=== PATIENT | male | born 1960 | race African-American/Black ===

== ENCOUNTER 2017-12-29 14:19 | Inpatient (IN) | payer OTHER ==
--- NOTE | 2017-12-29 16:54 | HP ---
COWS - Scale Resting Pulse: 1= [place] 81-100 Sweatin=Flushed/Facial Moisture Restless Observation: 1= Difficult to Sit Still Pupil Size: 0= Normal to Room Light Bone or Joint Aches: 2= Severe Diffuse Aches Runny Nose/ Eye Tearin= Nasal Congestion GI Upset > 30mins: 2= Nausea/Diarrhea Tremor Observation: 1= Tremor [place], Not Seen Yawning Observation: 1= 1-2x During Session Anxiety or Irritability: 1=Feels Anxious/Irritable Goose Flesh Skin: 0=Smooth Skin COWS Score: 12 CIWA Score - CIWA Score Nausea/Vomitin-Mild Nausea/No Vomiting Muscle Tremors: 1-None Visible, but [place] Anxiety: 3 Agitation: 2 Paroxysmal Sweats: 1-Minimal Palms Moist Orientation: 0-Oriented Tacttile Disturbances: 3-Moderate Itch/Numb/Burn Auditory Disturbances: 0-None Visual Disturbances: 0-None Headache: 2-Mild CIWA-Ar Total Score: 13 Admission ROS BHS - HPI Chief Complaint: Heroin/ETOH withdrawal symptoms. Allergies/Adverse Reactions: Allergies Allergy/AdvReac Type Severity Reaction Status Date / Time No Known Allergies Allergy Verified 12/29/17 16:31 History of Present Illness: Patient presents with Heroin and ETOH withdrawal symptoms. Started drinking at age 13. Drinks up to 2 pints of liquor and 18 beers daily. Had one episode of seizure years ago but denies any recent seizures. Patient started using herion at age 18. Has history injecting heroin but now he sniffs up to 2 bags daily. Last drink today at 1pm. Last use of heroin 12/27/17. Also reports he smokes crack /cocaine up to 10 bags daily and last dose today. Has PMH HIV+, Hep C, depression and HTN but is noncompliant with medication. Treated for Hepatitis C in 2015. Smokes up to 20 cigarettes daily. Denies SI, HI and suicide attempts. Exam Limitations: No Limitations - Ebola screening Have you traveled outside of the country in the last 21 days: No Have you had contact with anyone from an Ebola affected area: No Have you been sick,other than usual withdrawal symptoms: No Do you have a fever: No - Review of Systems Constitutional: Night Sweats, Changes in sleep, Unexplained wgt Loss EENT: reports: Tearing, Nose Congestion Respiratory: reports: Shortness of Breath Cardiac: reports: No Symptoms Reported GI: reports: Diarrhea, Nausea, Poor Fluid Intake, Abdominal cramping : reports: No Symptoms Reported Musculoskeletal: reports: Joint Pain, Muscle Pain Integumentary: reports: Sweating Neuro: reports: Headache, Numbness, Seizure, Tingling, Tremors Endocrine: reports: Unexplained Weight Loss Hematology: reports: No Symptoms Reported Psychiatric: reports: Orientated x3, Anxious, Depressed Patient History - Patient Medical History Hx Anemia: No Hx Asthma: Yes (on no meds) Hx Chronic Obstructive Pulmonary Disease (COPD): No Hx Cancer: Yes (Thymus gland cancer. . ) Hx Cardiac Disorders: No Hx Congestive Heart Failure: No Hx Hypertension: No Hx Hypercholesterolemia: No Hx Pacemaker: No HX Cerebrovascular Accident: No Hx Seizures: Yes (One seizure years ago. Date unknown) Hx Dementia: No Hx Diabetes: No Hx Gastrointestinal Disorders: No Hx Liver Disease: Yes Hx Genitourinary Disorders: No Hx Sexually Transmitted Disorders: No Hx Renal Disease (ESRD): No Hx Thyroid Disease: No Hx Human Immunodeficiency Virus (HIV): Yes Hx Hepatitis C: Yes (Treated for Hep C 2014) Hx Depression: Yes Hx Suicide Attempt: No Hx Bipolar Disorder: No Hx Schizophrenia: No - Patient Surgical History Past Surgical History: No Hx Neurologic Surgery: No Hx Cataract Extraction: No Hx Cardiac Surgery: No Hx Lung Surgery: No Hx Breast Surgery: No Hx Breast Biopsy: No Hx Abdominal Surgery: No Hx Appendectomy: No Hx Cholecystectomy: No Hx Genitourinary Surgery: No Hx Section: No Hx Orthopedic Surgery: No Other Surgical History: THYMUS CA SURGERY Anesthesia Reaction: No - PPD History Previous Implant?: Yes Documented Results: Positive w/o proof PPD to be Administered?: No - Smoking Cessation Smoking history: Current every day smoker Have you smoked in the past 12 months: Yes Aproximately how many cigarettes per day: 20 Hx Chewing Tobacco Use: No Initiated information on smoking cessation: Yes 'Breaking Loose' booklet given: 12/29/17 - Substance & Tx. History Hx Alcohol Use: Yes Hx Substance Use: Yes Substance Use Type: Alcohol, Cocaine, Heroin Hx Substance Use Treatment: Yes (Many years ago. Date unknown) - Substances Abused Alcohol Route: Oral Frequency: Daily Amount used: LIQUOR-2, BEER- 2 SIX PACKS Age of first use: 13 Date of Last Use: 12/29/17 Heroin Route: Inhalation Frequency: Daily Amount used: 2 BAGS Age of first use: 57 Date of Last Use: 12/27/17 Family Disease History - Family Disease History Family Disease History: Heart Disease: Mother (alive), CA: Grandparent (lung cancer) Admission Physical Exam [facility] - Physical General Appearance: Yes: Appropriately Dressed, Sweating, Anxious HEENTM: Yes: EOMI, Hearing grossly Normal, Normocephalic, Normal Voice, SASKIA, Pharynx Normal Respiratory: Yes: Within Normal Limits, Chest Non-Tender, Lungs Clear, Normal Breath Sounds, No Respiratory Distress, No Accessory Muscle Use Neck: Yes: No masses,lesions,Nodules, Supple, Trachea in good position Breast: Yes: Breast Exam Deferred Cardiology: Yes: Regular Rhythm, Regular Rate, S1, S2 Abdominal: Yes: Normal Bowel Sounds, Non Tender, Soft Genitourinary: Yes: Within Normal Limits Back: Yes: Normal Inspection, Muscle Spasm Musculoskeletal: Yes: Gait Steady, Back pain, Muscle Pain Extremities: Yes: Normal Range of Motion, Non-Tender, Tremors Neurological: Yes: paste up artist II-XII NML intact, Fully Oriented, Alert, Motor Strength 5/5, Normal Response, Depressed Affect Integumentary: Yes: Normal Color, Warm, Moist Lymphatic: Yes: Within Normal Limits - Diagnostic (1) Opioid dependence with withdrawal Current Visit: Yes Status: Acute (2) Alcohol dependence with uncomplicated withdrawal Current Visit: Yes Status: Acute (3) HIV positive Current Visit: Yes Status: Chronic (4) Depressed affect Current Visit: Yes Status: Acute (5) Nicotine dependence Current Visit: Yes Status: Chronic Qualifiers: Nicotine product type: unspecified Substance use status: uncomplicated Qualified Code(s): F17.200 - Nicotine dependence, unspecified, uncomplicated (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
[2017-12-29] MEDS ORDERED: ACETAMINOPHEN 325 MG TABLET (FP) PO PRN (17:16)
[2017-12-29] MEDS ORDERED: LOPERAMIDE HCL 2 MG CAPSULE PO PRN (17:16)
[2017-12-29] MEDS ORDERED: MAGNESIUM CITRATE 300 ML BOTTLE PO PRN (17:16)
[2017-12-29] MEDS ORDERED: MAGNESIUM HYDROX 2400MG/30ML ORAL SUSPENSION 30 ML CUP PO PRN (17:16)
[2017-12-29] MEDS ORDERED: hydrOXYzine PAMOATE 50 MG CAPSULE (FP) PO PRN (17:16)
[2017-12-29] MEDS ORDERED: guaiFENesin/D-METHORPHAN HB 10 ML UNIT-DOSE CUPS PO PRN (17:16)
[2017-12-29] MEDS ORDERED: MAG HYDROX/AL HYDROX/SIMETH 30 ML UNIT-DOSE CUP PO PRN (17:16)
[2017-12-29] MEDS ORDERED: IBUPROFEN 400 MG TABLET (FP) PO PRN (17:16)
[2017-12-29] MEDS ORDERED: NICOTINE POLACRILEX 2 MG GUM BC PRN (17:16)
[2017-12-29] MEDS ORDERED: MENTHOL/PHENOL 1 EACH UD MM PRN (17:16)
[2017-12-29] MEDS ORDERED: P-EPHED 60MG/TRIPROLIDI 2.5MG TABLET PO PRN (17:16)
[2017-12-29] MEDS ORDERED: chlordiazePOXIDE HCL 25 MG CAPSULE PO PRN (17:18)
[2017-12-29] MEDS ORDERED: chlordiazePOXIDE HCL 25 MG CAPSULE PO ONE (17:18)
[2017-12-29] MEDS ORDERED: METHADONE HCL 10 MG TABLET (FOR DETOX USE ONLY) PO ONE ×2 (17:18→23:00)
[2017-12-29 19:09] VITALS: BMI 31.6
[2017-12-29] MEDS ORDERED: METHADONE HCL 10 MG TABLET (FOR DETOX USE ONLY) ONE (20:06)
[2017-12-29] MEDS ORDERED: chlordiazePOXIDE HCL 25 MG CAPSULE ONE (20:06)
[2017-12-29] MEDS ORDERED: MELATONIN 5 MG TABLETS PO PRN (22:00)
[2017-12-29] MEDS: chlordiazePOXIDE HCL 25 MG CAPSULE PO SCH (22:07)
[2017-12-29] MEDS: THIAMINE HCL 100 MG TABLET (FP) PO SCH (22:08)
[2017-12-30] MEDS: chlordiazePOXIDE HCL 25 MG CAPSULE PO SCH ×4 (05:34→22:02)
[2017-12-30] MEDS ORDERED: METHADONE HCL 10 MG TABLET (FOR DETOX USE ONLY) PO SCH (10:00)
[2017-12-30] MEDS: PRENATAL VITAMINS W/ FOLIC ACID TABLET (FP) PO SCH (10:10)
[2017-12-30] MEDS: NICOTINE 21 MG/24 HOURS TOPICAL PATCH TD SCH (10:12)
[2017-12-30 10:39] LABS: HEMATOCRIT 43.7 % (35.4-49); HEMOGLOBIN 14.8 GM/dL (11.7-16.9); MCH 32.1 pg (25.7-33.7); MCHC 33.9 g/dl (32.0-35.9); MEAN CELL VOLUME 94.6 fl (80-96); MEAN PLT VOLUME 12.4 fl (7.5-11.1); PLATELET COUNT 122 K/MM3 (134-434); RBC 4.61 M/mm3 (4.00-5.60); RDW 12.7 % (11.9-15.9)
[2017-12-30 10:49] LABS: ALBUMIN 3.6 g/dl (3.4-5.0); ANION GAP 6 (8-16); BLOOD UREA NITROGEN 17 mg/dL (7-18); CHLORIDE 107 mmol/L (98-107); CO2 28 mmol/L (21-32); GLUCOSE,RANDOM 115 mg/dL (74-106); POTASSIUM 3.9 mmol/L (3.5-5.1); SGOT/AST 33 U/L (15-37); SGPT/ALT 22 U/L (12-78); SODIUM 141 mmol/L (136-145)
[2017-12-30 10:52] LABS: ALK PHOS 73 U/L (45-117); BILIRUBIN,TOTAL 0.4 mg/dL (0.2-1.0); CALCIUM 8.6 mg/dL (8.5-10.1); CREATININE 1.1 mg/dL (0.7-1.3); TOT PROT 6.8 g/dl (6.4-8.2)
--- NOTE | 2017-12-30 13:05 | CONSULT ---
[facility] Psychiatric Consult - Data Date of interview: 12/30/17 Admission source: [facility] Identifying data: First admission to [facility] for this 57 y/o AA male seeking detox treatment on for heroin,alcohol and cocaine (crack) dependence.Patient is single,a father of three,domiciled,unemployed and supported on SSI benefits. Substance Abuse History: Confirmed by patient in this interview.Details in current [facility] report : Smoking history: Current every day smoker. Have you smoked in the past 12 months: Yes. Aproximately how many cigarettes per day: 20. Hx Chewing Tobacco Use: No. Initiated information on smoking cessation: Yes. 'Breaking Loose' booklet given: 12/29/17. - Substance & Tx. History. Hx Alcohol Use: Yes. Hx Substance Use: Yes. Substance Use Type: Alcohol, Cocaine , Heroin. Hx Substance Use Treatment: Yes (Many years ago. Date unknown). - Substances Abused. Alcohol. Route: Oral. Frequency: Daily. Amount used: LIQUOR-2, BEER- 2 SIX PACKS. Age of first use: 13. Date of Last Use: . Heroin. Route: Inhalation. Frequency: Daily. Amount used: 2 BAGS. Age of first use: 57. Date of Last Use: 12/27/17 Medical History: HIV infection since 1987 (no compliant with ART medications), hypertension,bronchial asthma,hepatitis C,antecedent of withdrawal-related seizures and past surgery for cancer of thymus gland ([id number]). Psychiatric History: Patient denies. Physical/Sexual Abuse/Trauma History: Patient denies. Additional Comment: Urine Drug Screen Results: CHAKA-Cocaine, OPI-Opiates.Noted. Mental Status Exam - Mental Status Exam Alert and Oriented to: Time, Place, Person Cognitive Function: Good Patient Appearance: Well Groomed Mood: Hopeful, Euthymic Affect: Appropriate, Normal Range Patient Behavior: Appropriate, Cooperative Speech Pattern: Clear Voice Loudness: Normal Thought Process: Intact, Goal Oriented Thought Disorder: Not Present Hallucinations: Denies Suicidal Ideation: Denies Homicidal Ideation: Denies Insight/Judgement: Poor Sleep: Poorly, Difficulty falling asleep Appetite: Good Muscle strength/Tone: Normal Gait/Station: Normal Psychiatric Findings - Problem List ([place] 1, 2,3) (1) Alcohol dependence with uncomplicated withdrawal Current Visit: Yes Status: Acute (2) Opioid dependence with withdrawal Current Visit: Yes Status: Acute (3) Nicotine dependence Current Visit: Yes Status: Acute Qualifiers: Nicotine product type: unspecified Substance use status: uncomplicated Qualified Code(s): F17.200 - Nicotine dependence, unspecified, uncomplicated (4) Insomnia Current Visit: Yes Status: Acute - Initial Treatment Plan Initial Treatment Plan: Psychoeducation.Sleep hygiene.Detoxification in progress.Ambien 5 mg po hs prn.Patient is made aware of risk of parasomnias.Mr Taylor agrees with this careplan.Observation.
--- NOTE | 2017-12-30 13:19 | PN ---
[facility] CIWA - CIWA Score Nausea/Vomitin-No Nausea/No Vomiting Muscle Tremors: None Anxiety: 4-Mod. Anxious/Guarded Agitation: 2 Paroxysmal Sweats: 3 Orientation: 0-Oriented Tacttile Disturbances: 3-Moderate Itch/Numb/Burn Auditory Disturbances: 1-Very Mild Visual Disturbances: 3-Moderate Sensitivity Headache: 0-None Present CIWA-Ar Total Score: 16 BHS COWS - Scale Resting Pulse: 0= [place] 80 or Below Sweatin= Chills/Flushing Restless Observation: 0= Sits Still Pupil Size: 0= Normal to Room Light Bone or Joint Aches: 2= Severe Diffuse Aches Runny Nose/ Eye Tearin= Nasal Congestion GI Upset > 30mins: 2= Nausea/Diarrhea Tremor Observation of Outstretched Hands: 0= None Yawning Observation: 1= 1-2x During Session Anxiety or Irritability: 2=Irritable/Anxious Goose Flesh Skin: 3=Piloerection COWS Score: 12 BHS Progress Note (SOAP) Subjective: Body Aches, Fatigue, Sweating, Interrupted Sleep, Diarrhea. Objective: PATIENT A & O X 3. NO ACUTE DISTRESS. 12/30/17 13:17 Vital Signs Temperature 96.2 F L 12/30/17 09:12 Pulse Rate 78 12/30/17 12:00 Respiratory Rate 18 12/30/17 12:00 Blood Pressure 121/83 12/30/17 09:12 O2 Sat by Pulse Oximetry (%) Laboratory Tests 12/30/17 12/30/17 12/30/17 07:40 07:40 07:40 WBC 5.0 RBC 4.61 Hgb 14.8 Hct 43.7 MCV 94.6 MCH 32.1 MCHC 33.9 RDW 12.7 Plt Count 122 L MPV 12.4 H Sodium 141 Potassium 3.9 Chloride 107 Carbon Dioxide 28 Anion Gap 6 L BUN 17 Creatinine 1.1 Creat Clearance w eGFR > 60 Random Glucose 115 H Calcium 8.6 Total Bilirubin 0.4 AST 33 ALT 22 Alkaline Phosphatase 73 Total Protein 6.8 Albumin 3.6 RPR Titer Nonreactive LABS NOTED. UA RESULTS PENDING. Assessment: 12/30/17 13:18 WITHDRAWAL SYMPTOMS. Plan: CONTINUE DETOX. INCREASE DAILY PO FLUID INTAKE. ENCOURAGE AMBULATION.
--- NOTE | 2017-12-30 14:39 | EKG ---
Test Reason : Blood Pressure : / mmHG Vent. Rate : 087 BPM Atrial Rate : 087 BPM P-R Int : 162 ms QRS Dur : 130 ms QT Int : 386 ms P-R-T Axes : 068 063 046 degrees QTc Int : 464 ms NORMAL SINUS RHYTHM POSSIBLE LEFT ATRIAL ENLARGEMENT RIGHT BUNDLE BRANCH BLOCK ABNORMAL ECG NO PREVIOUS ECGS AVAILABLE Confirmed by MD Arley, Damion ([id number]) on 12/30/2017 2:39:28 PM Referred By: Confirmed By:Damion Tubbs MD
[2017-12-30] MEDS: TAMSULOSIN HCL 0.4 MG CAP.ER.24H (FP) PO SCH (20:51)
[2017-12-30] MEDS: ZOLPIDEM TARTRATE 5 MG TABLET PO PRN (22:02)
[2017-12-30] MEDS: THIAMINE HCL 100 MG TABLET (FP) PO SCH (22:02)
[2017-12-31] MEDS: chlordiazePOXIDE HCL 25 MG CAPSULE PO SCH ×3 (05:35→17:52)
[2017-12-31] MEDS: TAMSULOSIN HCL 0.4 MG CAP.ER.24H (FP) PO SCH ×2 (09:25→21:00)
[2017-12-31] MEDS: METHADONE HCL 5 MG TABLET (FOR DETOX USE ONLY) PO SCH (10:09)
[2017-12-31] MEDS: PRENATAL VITAMINS W/ FOLIC ACID TABLET (FP) PO SCH (10:09)
[2017-12-31] MEDS: NICOTINE 21 MG/24 HOURS TOPICAL PATCH TD SCH (10:11)
--- NOTE | 2017-12-31 11:14 | PN ---
S CIWA - CIWA Score Nausea/Vomitin-No Nausea/No Vomiting Muscle Tremors: 4-Moderate,w/Arms Extend Anxiety: 4-Mod. Anxious/Guarded Agitation: 4-Moderately Restless Orientation: 0-Oriented Tacttile Disturbances: 0-None Auditory Disturbances: 0-None Visual Disturbances: 0-None Headache: 0-None Present S COWS - Scale Resting Pulse: 0= [place] 80 or Below Sweatin= Chills/Flushing Restless Observation: 3= Extraneous Movement Pupil Size: 2= Moderately Dilated Bone or Joint Aches: 1= Mild Discomfort Runny Nose/ Eye Tearin= None GI Upset > 30mins: 0= None Tremor Observation of Outstretched Hands: 2= Slight Tremor Visible Yawning Observation: 1= 1-2x During Session Anxiety or Irritability: 2=Irritable/Anxious Goose Flesh Skin: 0=Smooth Skin COWS Score: 12 S Progress Note (SOAP) Subjective: ANXIETY,SWEATS,INTERMITTENT SLEEP. Objective: 12/31/17 11:13 Vital Signs Temperature 96.5 F L 12/31/17 09:16 Pulse Rate 76 12/31/17 09:16 Respiratory Rate 18 12/31/17 09:16 Blood Pressure 112/78 12/31/17 09:16 O2 Sat by Pulse Oximetry (%) Laboratory Tests 12/30/17 12/30/17 12/30/17 07:40 07:40 07:40 WBC 5.0 RBC 4.61 Hgb 14.8 Hct 43.7 MCV 94.6 MCH 32.1 MCHC 33.9 RDW 12.7 Plt Count 122 L MPV 12.4 H Sodium 141 Potassium 3.9 Chloride 107 Carbon Dioxide 28 Anion Gap 6 L BUN 17 Creatinine 1.1 Creat Clearance w eGFR > 60 Random Glucose 115 H Calcium 8.6 Total Bilirubin 0.4 AST 33 ALT 22 Alkaline Phosphatase 73 Total Protein 6.8 Albumin 3.6 RPR Titer Nonreactive Assessment: 12/31/17 11:14 WITHDRAWAL SX Plan: CONTINUE DETOX
[2017-12-31] MEDS: chlordiazePOXIDE 5 MG CAPSULE PO SCH (22:04)
[2017-12-31] MEDS: ZOLPIDEM TARTRATE 5 MG TABLET PO PRN (22:05)
[2017-12-31] MEDS: THIAMINE HCL 100 MG TABLET (FP) PO SCH (22:05)
[2018-01-01] MEDS: chlordiazePOXIDE 5 MG CAPSULE PO SCH ×3 (05:03→17:25)
[2018-01-01] MEDS: METHADONE HCL 5 MG TABLET (FOR DETOX USE ONLY) PO SCH (10:11)
[2018-01-01] MEDS: NICOTINE 21 MG/24 HOURS TOPICAL PATCH TD SCH (10:11)
[2018-01-01] MEDS: TAMSULOSIN HCL 0.4 MG CAP.ER.24H (FP) PO SCH ×2 (10:11→21:00)
[2018-01-01] MEDS: PRENATAL VITAMINS W/ FOLIC ACID TABLET (FP) PO SCH (10:11)
--- NOTE | 2018-01-01 11:09 | PN ---
BHS Progress Note (SOAP) Subjective: Diarrhea Sweats Sleep disturbance Shakes Objective: 01/01/18 11:08 A & O x 3 Sleeping but arousable to verbal stimuli Vital Signs Temperature 96.0 F L 01/01/18 09:01 Pulse Rate 76 01/01/18 09:01 Respiratory Rate 18 01/01/18 09:01 Blood Pressure 100/64 01/01/18 09:01 O2 Sat by Pulse Oximetry (%) Assessment: 01/01/18 11:08 Withdrawal sx Plan: Continue detox
[2018-01-01] MEDS: chlordiazePOXIDE HCL 10 MG CAPSULE PO SCH (22:06)
[2018-01-01] MEDS: ZOLPIDEM TARTRATE 5 MG TABLET PO PRN (22:07)
[2018-01-01] MEDS: THIAMINE HCL 100 MG TABLET (FP) PO SCH (22:07)
[2018-01-02] MEDS: chlordiazePOXIDE HCL 10 MG CAPSULE PO SCH ×2 (05:10→10:07)
[2018-01-02] MEDS: PRENATAL VITAMINS W/ FOLIC ACID TABLET (FP) PO SCH (09:49)
[2018-01-02] MEDS: NICOTINE 21 MG/24 HOURS TOPICAL PATCH TD SCH (09:50)
[2018-01-02] MEDS: TAMSULOSIN HCL 0.4 MG CAP.ER.24H (FP) PO SCH (09:50)
[2018-01-02] MEDS ORDERED: METHADONE HCL 10 MG TABLET (FOR DETOX USE ONLY) PO SCH (10:00)
--- NOTE | 2018-01-02 12:49 | PN ---
S Progress Note (SOAP) Subjective: Anxious, Fatigue. Objective: PATIENT A & O X 3, OBSERVED AMBULATING ON UNIT. NO ACUTE DISTRESS. 01/02/18 12:47 Vital Signs Temperature 98.8 F 01/02/18 09:56 Pulse Rate 82 01/02/18 09:56 Respiratory Rate 18 01/02/18 09:56 Blood Pressure 96/58 01/02/18 09:56 O2 Sat by Pulse Oximetry (%) Laboratory Tests 12/30/17 12/30/17 12/30/17 07:40 07:40 07:40 WBC 5.0 RBC 4.61 Hgb 14.8 Hct 43.7 MCV 94.6 MCH 32.1 MCHC 33.9 RDW 12.7 Plt Count 122 L MPV 12.4 H Sodium 141 Potassium 3.9 Chloride 107 Carbon Dioxide 28 Anion Gap 6 L BUN 17 Creatinine 1.1 Creat Clearance w eGFR > 60 Random Glucose 115 H Calcium 8.6 Total Bilirubin 0.4 AST 33 ALT 22 Alkaline Phosphatase 73 Total Protein 6.8 Albumin 3.6 RPR Titer Nonreactive LABS NOTED. Assessment: 01/02/18 12:48 WITHDRAWAL SYMPTOMS. Plan: CONTINUE DETOX. INCREASE DAILY PO FLUID INTAKE.
[2018-01-02 13:25] VITALS: BP 98/61; PULSE 77; TEMP 98.6
--- NOTE | 2018-01-02 18:36 | DS ---
[facility] Detox Discharge Summary Admission Date: 12/29/17 Discharge Date: 01/02/18 - History Present History: Alcohol Dependence, Opioid Dependence Additional Comments: [facility] [place] FOR AFTERCARE. PATIENT WAS DISCHARGED FROM DETOX UNIT IN STABLE MEDICAL CONDITION. Pertinent Past History: Asthma, History of Seizure, HIV, Hep C (Treated), Depression, Insomnia, History of Positive PPD, Nicotine Dependence, History of Cancer of Thymus Gland. - Physical Exam Results Vital Signs: Vital Signs Temperature 98.6 F 01/02/18 13:20 Pulse Rate 77 01/02/18 13:20 Respiratory Rate 20 01/02/18 13:20 Blood Pressure 98/61 01/02/18 13:20 O2 Sat by Pulse Oximetry (%) Pertinent Admission Physical Exam Findings: WITHDRAWAL SYMPTOMS. Laboratory Tests 12/30/17 12/30/17 12/30/17 07:40 07:40 07:40 WBC 5.0 RBC 4.61 Hgb 14.8 Hct 43.7 MCV 94.6 MCH 32.1 MCHC 33.9 RDW 12.7 Plt Count 122 L MPV 12.4 H Sodium 141 Potassium 3.9 Chloride 107 Carbon Dioxide 28 Anion Gap 6 L BUN 17 Creatinine 1.1 Creat Clearance w eGFR > 60 Random Glucose 115 H Calcium 8.6 Total Bilirubin 0.4 AST 33 ALT 22 Alkaline Phosphatase 73 Total Protein 6.8 Albumin 3.6 RPR Titer Nonreactive LABS NOTED. - Treatment Hospital Course: Detox Protocol Followed, Detoxed Safely, Responded well, Discharged Condition Good, Rehab Referral Accepted Patient has Accept[facility] ([facility] [place] . - Medication Discharge Medications: Ambulatory Orders Tamsulosin HCl [Flomax -] 0.4 mg PO BID 12/30/17 Albuterol Sulfate Inhaler - [Ventolin Hfa Inhaler -] 1 - 2 inh PO PRN 01/02/18 - Diagnosis (1) Alcohol dependence with uncomplicated withdrawal Status: Acute (2) Depressed affect Status: Acute (3) Nicotine dependence Status: Acute Qualifiers: Nicotine product type: cigarettes Substance use status: in withdrawal Qualified Code(s): F17.213 - Nicotine dependence, cigarettes, with withdrawal (4) Opioid dependence with withdrawal Status: Acute (5) Positive PPD Status: Chronic (6) HIV positive Status: Chronic (7) Insomnia Status: Acute Qualifiers: Insomnia type: unspecified Qualified Code(s): G47.00 - Insomnia, unspecified - AMA Did Patient Leave Against Medical Advice: No
[2018-01-03] MEDS ORDERED: METHADONE HCL 5 MG TABLET (FOR DETOX USE ONLY) PO SCH (06:00)
== END 2018-01-02 14:48 | disposition other institution (70) | DRG 773 ==
LOC: YASAS 14:19 → Y3N 17:09
PROVIDERS: ADMIT Internal Medicine; ATTEND Internal Medicine
PROC: HZ2ZZZZ Detoxification Services for Substance Abuse Treatment (ICD-10-PCS; principal; 2017-12-29)
DX: F11.23 Opioid dependence with withdrawal (principal); F10.230 Alcohol dependence with withdrawal, uncomplicated; F17.213 Nicotine dependence, cigarettes, with withdrawal; F32.9 Major depressive disorder, single episode, unspecified; I10 Essential (primary) hypertension; J45.909 Unspecified asthma, uncomplicated; Z21 Asymptomatic human immunodeficiency virus [HIV] infection status; G47.00 Insomnia, unspecified; R76.11 Nonspecific reaction to tuberculin skin test without active tuberculosis; B18.2 Chronic viral hepatitis C; Z91.14 Patient's other noncompliance with medication regimen; Z85.238 Personal history of other malignant neoplasm of thymus; Z86.69 Personal history of other diseases of the nervous system and sense organs
CPT/HCPCS: 36415; 71046-TC-FY; 80053; 85027; 86593; 93005; 93010

== ENCOUNTER 2018-01-02 14:46 | Inpatient (IN) | payer OTHER ==
[2018-01-02] MEDS ORDERED: ACETAMINOPHEN 325 MG TABLET (FP) PO PRN (15:02)
[2018-01-02] MEDS ORDERED: LOPERAMIDE HCL 2 MG CAPSULE PO PRN (15:02)
[2018-01-02] MEDS ORDERED: guaiFENesin/D-METHORPHAN HB 10 ML UNIT-DOSE CUPS PO PRN (15:02)
[2018-01-02] MEDS ORDERED: MAGNESIUM HYDROX 2400MG/30ML ORAL SUSPENSION 30 ML CUP PO PRN (15:02)
[2018-01-02] MEDS ORDERED: MAGNESIUM CITRATE 300 ML BOTTLE PO PRN (15:02)
[2018-01-02] MEDS ORDERED: NICOTINE POLACRILEX 2 MG GUM BUC PRN (15:02)
[2018-01-02] MEDS ORDERED: P-EPHED 60MG/TRIPROLIDI 2.5MG TABLET PO PRN (15:02)
[2018-01-02] MEDS ORDERED: MAG HYDROX/AL HYDROX/SIMETH 30 ML UNIT-DOSE CUP PO PRN (15:02)
--- NOTE | 2018-01-02 15:04 | HP ---
[facility] Rehab Assess/Revision - Admission History Admitted to Rehab from: [facility] Date of Admission to Rehab: 01/02/2018 - Vital signs Vital Signs: NOTED; STABLE. - Findings Detox History & Physical reviewed: Yes Concur with findings: Yes Comments/Additional Findings: PATIENT'S MEDICAL / MEDICATION HISTORY REVIEWED PRIOR TO DISCHARGE FROM DETOX UNIT. PATIENT WAS DISCHARGED FROM DETOX UNIT TO BE TAKEN TO REHAB UNIT IN STABLE MEDICAL CONDITION. Inpatient Rehab Admission - Initial Determination Are CD services needed?: Yes Free of communicable disease: Yes Not in need of hospitalization: Yes - Rehab Admission Criteria Previous failed treatment: Yes Comorbidities: Yes Patient is meeting Inpatient Rehab admission criteria:: Yes
[2018-01-02 15:51] VITALS: BMI 32.8
[2018-01-02] MEDS ORDERED: ALBUTEROL SO4 18 GM HFA INHALER IH PRN (18:39)
[2018-01-02] MEDS ORDERED: TAMSULOSIN HCL 0.4 MG CAP.ER.24H (FP) PO SCH (22:00)
[2018-01-02] MEDS: TAMSULOSIN HCL 0.4 MG CAP.ER.24H (FP) PO SCH (22:12)
[2018-01-02] MEDS: THIAMINE HCL 100 MG TABLET (FP) PO SCH (22:12)
[2018-01-02] MEDS: MELATONIN 5 MG TABLETS PO PRN (22:13)
[2018-01-03] MEDS: IBUPROFEN 400 MG TABLET (FP) PO PRN (06:20)
--- NOTE | 2018-01-03 06:26 | HP ---
Psychiatrist Admission - Data Date of interview: 01/03/18 Admission source: [facility] Identifying data: This is the first [facility] admission for this 57 years old single Black male, father of 3 children, unemployed on SSI, domiciled Medical History: Significant for HIV infection since 1987 (no compliant with ART medications), hypertension, bronchial asthma, hepatitis C past history of withdrawal-related seizures, treatment for syphilis and past surgery for cancer of thymus gland ([id number]). Smokes cigarettes 1ppd Psychiatric History: Denies history of previous psychiatric treatment Physical/Sexual Abuse/Trauma History: Denies history of emotional, physical or sexual abuse as well as DV relationship Additional Comment: Reports history of 5 previous arrests including 3 felony convictions. Denies being on parole/probation at present Vital Signs: Vital Signs - 24 hr 01/02/18 01/03/18 01/03/18 15:39 00:30 03:30 Temperature 97.6 F Pulse Rate 80 Respiratory 20 18 18 Rate Blood Pressure 112/74 Allergies/Adverse Reactions: Allergies Allergy/AdvReac Type Severity Reaction Status Date / Time No Known Allergies Allergy Verified 12/29/17 16:31 Date of last physical exam: 12/29/17 Concur with the findings of this exam: Yes - Substance Abuse/Tx History Hx Alcohol Use: Yes Hx Substance Use: Yes Substance Use Type: Alcohol (Started drinking alcohol at age 13, consumes 2 pints of liquor & 2x 6pk of beer daily. Last drank on 12/29/17), Heroin (Started using heroin at age 57, consumes 2 bags daily. Last used on 12/27/17) Hx Substance Use Treatment: Yes (One recent inpt detox admission @ [facility]) Mental Status Exam - Mental Status Exam Alert and Oriented to: Time, Place, Person Cognitive Function: Fair Patient Appearance: Disheveled Mood: Anxious, Irritable Affect: Appropriate Patient Behavior: Cooperative Speech Pattern: Clear Voice Loudness: Normal Thought Process: Intact, Goal Oriented Hallucinations: Denies Suicidal Ideation: Denies Homicidal Ideation: Denies Insight/Judgement: Fair Sleep: Poorly Appetite: Fair Muscle strength/Tone: Normal Gait/Station: Normal Psychiatric Findings - Problem List ([place] 1, 2,3) (1) Alcohol dependence Current Visit: Yes Status: Acute (2) Opioid dependence Current Visit: Yes Status: Acute (3) Nicotine dependence Current Visit: No Status: Chronic Qualifiers: Nicotine product type: cigarettes Substance use status: in withdrawal Qualified Code(s): F17.213 - Nicotine dependence, cigarettes, with withdrawal (4) Substance induced mood disorder Current Visit: Yes Status: Acute (5) Substance-induced sleep disorder Current Visit: Yes Status: Acute (6) HIV positive Current Visit: No Status: Chronic (7) Positive PPD Current Visit: No Status: Chronic (8) Bronchial asthma Current Visit: Yes Status: Chronic - Initial Treatment Plan Initial Treatment Plan: 1) Start Belsomra 10 mg po HS prn for insomnia. 2) Monitor progress
[2018-01-03] MEDS: TAMSULOSIN HCL 0.4 MG CAP.ER.24H (FP) PO SCH ×2 (08:50→20:35)
[2018-01-03] MEDS: PRENATAL VITAMINS W/ FOLIC ACID TABLET (FP) PO SCH (10:56)
[2018-01-03] MEDS: NICOTINE 21 MG/24 HOURS TOPICAL PATCH TD SCH (10:57)
--- NOTE | 2018-01-03 13:59 | PN ---
BHS Progress Note Note: Patient c/o nausea, sweating and tiredness x 1 day. Vital Signs Period Temp Pulse Resp BP Sys/[place] Pulse Ox Last 24 Hr 97.3 F-97.6 F 71-80 18-20 96-112/63-74 Obj: General: alert and oriented x 3. In no acute distress. Skin: moist, warm and intact GI: soft, BS+, NT Ext: no edema A/P: Withdrawal symptoms Will order Zofran 4mg x one dose continue current medical treatment and continue to monitor clinically
[2018-01-03] MEDS ORDERED: ONDANSETRON *ODT* 4 MG TABLET SL ONE (14:45)
[2018-01-03] MEDS ORDERED: ONDANSETRON 4 MG TABLET PO ONE (14:45)
[2018-01-03] MEDS: THIAMINE HCL 100 MG TABLET (FP) PO SCH (22:07)
[2018-01-03] MEDS: MELATONIN 5 MG TABLETS PO PRN (22:07)
[2018-01-04] MEDS: TAMSULOSIN HCL 0.4 MG CAP.ER.24H (FP) PO SCH ×2 (07:42→20:32)
[2018-01-04] MEDS: NICOTINE 21 MG/24 HOURS TOPICAL PATCH TD SCH (10:10)
[2018-01-04] MEDS: PRENATAL VITAMINS W/ FOLIC ACID TABLET (FP) PO SCH (10:10)
[2018-01-04] MEDS: SUVOREXANT 10 MG TABLET PO PRN (21:53)
[2018-01-04] MEDS: THIAMINE HCL 100 MG TABLET (FP) PO SCH (21:54)
[2018-01-05] MEDS: TAMSULOSIN HCL 0.4 MG CAP.ER.24H (FP) PO SCH ×2 (07:41→20:50)
[2018-01-05] MEDS: PRENATAL VITAMINS W/ FOLIC ACID TABLET (FP) PO SCH (10:23)
[2018-01-05] MEDS: NICOTINE 21 MG/24 HOURS TOPICAL PATCH TD SCH (10:24)
[2018-01-05] MEDS: MENTHOL/PHENOL 1 EACH UD MM PRN (12:39)
--- NOTE | 2018-01-05 13:26 | PN ---
S Progress Note Note: Patient c/o shoulder and LBP. Pain level 4/10. Dull ache. Patient is alert and oriented x 3. In no acute distress. Full ROM of all extremities. A/P: [place]ouler/ LBP: will treat with flexeril 10mg TID prn and continue to monitor.
[2018-01-05] MEDS: THIAMINE HCL 100 MG TABLET (FP) PO SCH (21:57)
[2018-01-05] MEDS: SUVOREXANT 10 MG TABLET PO PRN (21:57)
[2018-01-06] MEDS: TAMSULOSIN HCL 0.4 MG CAP.ER.24H (FP) PO SCH ×2 (08:30→20:15)
[2018-01-06] MEDS: PRENATAL VITAMINS W/ FOLIC ACID TABLET (FP) PO SCH (10:50)
[2018-01-06] MEDS: CYCLOBENZAPRINE HCL 10 MG TABLET (FP) PO PRN ×2 (10:52→20:15)
[2018-01-06] MEDS: NICOTINE 21 MG/24 HOURS TOPICAL PATCH TD SCH (10:53)
[2018-01-06] MEDS ORDERED: PT OWN MED DRAWER 7, Y5N ONE (14:39)
[2018-01-06] MEDS: THIAMINE HCL 100 MG TABLET (FP) PO SCH (21:14)
[2018-01-06] MEDS: MELATONIN 5 MG TABLETS PO PRN (21:14)
[2018-01-06] MEDS ORDERED: SUVOREXANT 10 MG TABLET PO PRN (22:00)
[2018-01-07] MEDS: MENTHOL/PHENOL 1 EACH UD MM PRN (06:24)
[2018-01-07] MEDS: TAMSULOSIN HCL 0.4 MG CAP.ER.24H (FP) PO SCH ×2 (09:30→21:02)
[2018-01-07] MEDS: NICOTINE 21 MG/24 HOURS TOPICAL PATCH TD SCH (12:02)
[2018-01-07] MEDS: PRENATAL VITAMINS W/ FOLIC ACID TABLET (FP) PO SCH (12:02)
--- NOTE | 2018-01-07 12:08 | PN ---
BHS Progress Note Note: painful in swallowing and oral sore,history of oropharyngeal candidiasis oral thrush on examination oral sore no respiratory problem impression oropharyngeal candidiasis treatment mycelex terri x5 prn for 5 days xylocaine viscous swish and spit supprtive treatment
[2018-01-07] MEDS: LIDOCAINE VISCOUS 2% ORAL/TOP 20 ML UNIT-DOSE CUP MM PRN (12:12)
[2018-01-07] MEDS: CYCLOBENZAPRINE HCL 10 MG TABLET (FP) PO PRN (12:12)
[2018-01-07] MEDS: CLOTRIMAZOLE 10 MG TROCHE (FP) PO SCH ×3 (14:55→21:02)
[2018-01-07] MEDS: MELATONIN 5 MG TABLETS PO PRN (21:02)
[2018-01-07] MEDS: THIAMINE HCL 100 MG TABLET (FP) PO SCH (21:02)
[2018-01-08] MEDS: LIDOCAINE VISCOUS 2% ORAL/TOP 20 ML UNIT-DOSE CUP MM PRN (02:13)
[2018-01-08] MEDS: CLOTRIMAZOLE 10 MG TROCHE (FP) PO SCH ×5 (06:47→21:48)
[2018-01-08] MEDS: TAMSULOSIN HCL 0.4 MG CAP.ER.24H (FP) PO SCH ×2 (08:03→21:47)
[2018-01-08] MEDS: NICOTINE 21 MG/24 HOURS TOPICAL PATCH TD SCH (10:41)
[2018-01-08] MEDS: PRENATAL VITAMINS W/ FOLIC ACID TABLET (FP) PO SCH (10:41)
--- NOTE | 2018-01-08 17:09 | PN ---
S Progress Note Note: Notified by RN patient continues to have sore throat. Vital signs stable. Throat culture ordered. Continue to monitor clinically.
[2018-01-08] MEDS: THIAMINE HCL 100 MG TABLET (FP) PO SCH (21:47)
[2018-01-08] MEDS: MELATONIN 5 MG TABLETS PO PRN (21:48)
[2018-01-09] MEDS: CLOTRIMAZOLE 10 MG TROCHE (FP) PO SCH ×5 (06:21→21:38)
[2018-01-09] MEDS: PRENATAL VITAMINS W/ FOLIC ACID TABLET (FP) PO SCH (10:14)
[2018-01-09] MEDS: TAMSULOSIN HCL 0.4 MG CAP.ER.24H (FP) PO SCH ×2 (10:15→21:37)
[2018-01-09] MEDS: NICOTINE 21 MG/24 HOURS TOPICAL PATCH TD SCH (10:15)
[2018-01-09] MEDS: THIAMINE HCL 100 MG TABLET (FP) PO SCH (21:37)
[2018-01-09] MEDS: MELATONIN 5 MG TABLETS PO PRN (21:38)
[2018-01-09] MEDS ORDERED: SUVOREXANT 10 MG TABLET PO PRN (22:00)
[2018-01-10] MEDS: CLOTRIMAZOLE 10 MG TROCHE (FP) PO SCH ×5 (06:15→21:41)
[2018-01-10] MEDS: TAMSULOSIN HCL 0.4 MG CAP.ER.24H (FP) PO SCH ×2 (08:41→19:55)
[2018-01-10] MEDS: PRENATAL VITAMINS W/ FOLIC ACID TABLET (FP) PO SCH (10:40)
[2018-01-10] MEDS: NICOTINE 21 MG/24 HOURS TOPICAL PATCH TD SCH (10:41)
[2018-01-10] MEDS: MELATONIN 5 MG TABLETS PO PRN (21:41)
[2018-01-10] MEDS: THIAMINE HCL 100 MG TABLET (FP) PO SCH (21:41)
[2018-01-10] MEDS: CYCLOBENZAPRINE HCL 10 MG TABLET (FP) PO PRN (21:43)
[2018-01-11] MEDS: CLOTRIMAZOLE 10 MG TROCHE (FP) PO SCH ×5 (06:33→22:07)
[2018-01-11] MEDS: TAMSULOSIN HCL 0.4 MG CAP.ER.24H (FP) PO SCH ×2 (08:48→22:07)
[2018-01-11] MEDS: PRENATAL VITAMINS W/ FOLIC ACID TABLET (FP) PO SCH (09:48)
[2018-01-11] MEDS: NICOTINE 21 MG/24 HOURS TOPICAL PATCH TD SCH (09:48)
--- NOTE | 2018-01-11 11:14 | PN ---
S Progress Note Note: THROAT FOR C/S SHOWED BETA HEMOLYTIC STEP GROUP C,TO START ON PEN VEEK 500 MGS PO Q 6 HRS FOR 7 DAYS
[2018-01-11] MEDS ORDERED: PENICILLIN V POTASSIUM 500 MG TABLET PO ONE (11:20)
--- NOTE | 2018-01-11 13:21 | PN ---
BHS Progress Note Note: sore throat, + strep on penicillin 500mg q6h x 7 days . Peridex order to relive discomfort.
[2018-01-11] MEDS: CHLORHEXIDINE GLUCONATE 0.12% 15ML CUP MM SCH ×2 (14:04→22:09)
[2018-01-11] MEDS: PENICILLIN V POTASSIUM 500 MG TABLET PO SCH ×2 (17:26→23:08)
[2018-01-11] MEDS: THIAMINE HCL 100 MG TABLET (FP) PO SCH (22:07)
[2018-01-11] MEDS: CYCLOBENZAPRINE HCL 10 MG TABLET (FP) PO PRN (22:09)
[2018-01-12] MEDS: PENICILLIN V POTASSIUM 500 MG TABLET PO SCH ×3 (06:11→17:32)
[2018-01-12] MEDS: CLOTRIMAZOLE 10 MG TROCHE (FP) PO SCH ×5 (06:11→23:18)
[2018-01-12] MEDS: CYCLOBENZAPRINE HCL 10 MG TABLET (FP) PO PRN ×2 (06:12→23:18)
[2018-01-12] MEDS: TAMSULOSIN HCL 0.4 MG CAP.ER.24H (FP) PO SCH ×2 (08:56→23:16)
[2018-01-12] MEDS ORDERED: PT OWN MED DRAWER 7, Y5N ONE (09:22)
[2018-01-12] MEDS: PRENATAL VITAMINS W/ FOLIC ACID TABLET (FP) PO SCH (09:56)
[2018-01-12] MEDS: CHLORHEXIDINE GLUCONATE 0.12% 15ML CUP MM SCH ×2 (10:29→23:18)
[2018-01-12] MEDS: NICOTINE 21 MG/24 HOURS TOPICAL PATCH TD SCH (10:29)
[2018-01-12] MEDS: IBUPROFEN 400 MG TABLET (FP) PO PRN (17:32)
[2018-01-12] MEDS: MELATONIN 5 MG TABLETS PO PRN (23:17)
[2018-01-12] MEDS: THIAMINE HCL 100 MG TABLET (FP) PO SCH (23:17)
[2018-01-13] MEDS: PENICILLIN V POTASSIUM 500 MG TABLET PO SCH ×5 (01:24→23:06)
[2018-01-13] MEDS: IBUPROFEN 400 MG TABLET (FP) PO PRN (07:51)
[2018-01-13] MEDS: TAMSULOSIN HCL 0.4 MG CAP.ER.24H (FP) PO SCH ×2 (07:51→20:00)
[2018-01-13] MEDS ORDERED: PT OWN MED DRAWER 7, Y5N ONE (09:04)
[2018-01-13] MEDS: NICOTINE 21 MG/24 HOURS TOPICAL PATCH TD SCH (09:57)
[2018-01-13] MEDS: CHLORHEXIDINE GLUCONATE 0.12% 15ML CUP MM SCH ×2 (09:57→21:32)
[2018-01-13] MEDS: PRENATAL VITAMINS W/ FOLIC ACID TABLET (FP) PO SCH (09:57)
[2018-01-13] MEDS: THIAMINE HCL 100 MG TABLET (FP) PO SCH (21:32)
[2018-01-13] MEDS: MELATONIN 5 MG TABLETS PO PRN (21:33)
[2018-01-13] MEDS: CYCLOBENZAPRINE HCL 10 MG TABLET (FP) PO PRN (21:34)
[2018-01-14] MEDS: PENICILLIN V POTASSIUM 500 MG TABLET PO SCH ×4 (06:13→23:18)
[2018-01-14] MEDS: TAMSULOSIN HCL 0.4 MG CAP.ER.24H (FP) PO SCH ×2 (07:37→22:40)
[2018-01-14] MEDS ORDERED: PT OWN MED DRAWER 7, Y5N ONE (08:59)
[2018-01-14] MEDS: CHLORHEXIDINE GLUCONATE 0.12% 15ML CUP MM SCH ×2 (10:03→22:40)
[2018-01-14] MEDS: PRENATAL VITAMINS W/ FOLIC ACID TABLET (FP) PO SCH (10:03)
[2018-01-14] MEDS: NICOTINE 21 MG/24 HOURS TOPICAL PATCH TD SCH (10:03)
[2018-01-14] MEDS: THIAMINE HCL 100 MG TABLET (FP) PO SCH (22:40)
[2018-01-14] MEDS: MELATONIN 5 MG TABLETS PO PRN (22:41)
[2018-01-14] MEDS: CYCLOBENZAPRINE HCL 10 MG TABLET (FP) PO PRN (22:41)
[2018-01-15] MEDS: PENICILLIN V POTASSIUM 500 MG TABLET PO SCH ×3 (06:28→18:31)
[2018-01-15] MEDS: TAMSULOSIN HCL 0.4 MG CAP.ER.24H (FP) PO SCH ×2 (07:39→23:17)
[2018-01-15] MEDS: PRENATAL VITAMINS W/ FOLIC ACID TABLET (FP) PO SCH (10:31)
[2018-01-15] MEDS: CHLORHEXIDINE GLUCONATE 0.12% 15ML CUP MM SCH ×2 (10:32→23:44)
[2018-01-15] MEDS: NICOTINE 21 MG/24 HOURS TOPICAL PATCH TD SCH (10:32)
--- NOTE | 2018-01-15 13:51 | PN ---
[facility] Progress Note Note: PATIENT PRESENTS WITH ONGOING SORE THROAT AND POOR APPETITE. PATIENT REPORTS HISTORY OF HIV BUT IS NON COMPLIANT WITH MEDICATION AND MD FOLLOW UP. RECENTLY DIAGNOSED WITH STREPT THROAT AND IS CURRENTLY ON PENICILLIN X ONE WEEK. Vital Signs Temperature 98.1 F 01/15/18 06:30 Pulse Rate 97 H 01/15/18 06:30 Respiratory Rate 20 01/15/18 06:30 Blood Pressure 102/70 01/15/18 06:30 O2 Sat by Pulse Oximetry (%) OBJ: ALERT AND ORIENTED X 3. IN NO ACUTE DISTRESS ENT: NO NASAL DISCHARGE, ORAL MUCOSA PINK AND MOIST. NO VISIBLE EXUDATE CAR: S1S2, RRR. RESP: CTA BL GI: SOFT, BS+, NT A/P: POOR APPETITE STREP THROAT HX OF HIV WILL CHECK CBC, BMP AND THROAT C/S ADD ENSURE 120ML BID PATIENT NOT EATING FULL MEALS INCREASE ORAL FLUIDS PT ENCOURAGED FOLLOW UP WITH PCP UPON DISCHARGE CONTINUE PCN CONTINUE TO MONITOR CLINICALLY
[2018-01-15] MEDS: IBUPROFEN 400 MG TABLET (FP) PO PRN (18:31)
[2018-01-15] MEDS: CYCLOBENZAPRINE HCL 10 MG TABLET (FP) PO PRN (23:15)
[2018-01-15] MEDS: MELATONIN 5 MG TABLETS PO PRN (23:15)
[2018-01-15] MEDS: THIAMINE HCL 100 MG TABLET (FP) PO SCH (23:44)
[2018-01-16] MEDS: PENICILLIN V POTASSIUM 500 MG TABLET PO SCH ×4 (06:11→23:45)
[2018-01-16] MEDS: TAMSULOSIN HCL 0.4 MG CAP.ER.24H (FP) PO SCH ×2 (07:43→22:01)
[2018-01-16] MEDS: PRENATAL VITAMINS W/ FOLIC ACID TABLET (FP) PO SCH (09:35)
[2018-01-16] MEDS: NICOTINE 21 MG/24 HOURS TOPICAL PATCH TD SCH (09:36)
[2018-01-16] MEDS: CHLORHEXIDINE GLUCONATE 0.12% 15ML CUP MM SCH ×2 (09:36→22:01)
[2018-01-16 10:07] LABS: HEMOGLOBIN 15.1 GM/dL (11.7-16.9); MCH 30.9 pg (25.7-33.7); MCHC 33.5 g/dl (32.0-35.9); MEAN CELL VOLUME 92.3 fl (80-96); MEAN PLT VOLUME 11.8 fl (7.5-11.1); PLATELET COUNT 121 K/MM3 (134-434); RBC 4.88 M/mm3 (4.00-5.60); RDW 12.9 % (11.9-15.9); WHITE BLOOD COUNT 3.3 K/mm3 (4.0-10.0)
[2018-01-16 10:18] LABS: CHLORIDE 104 mmol/L (98-107); POTASSIUM 3.9 mmol/L (3.5-5.1); SODIUM 141 mmol/L (136-145)
[2018-01-16 11:15] LABS: ANION GAP 8 (8-16); BLOOD UREA NITROGEN 18 mg/dL (7-18); CALCIUM 8.7 mg/dL (8.5-10.1); CO2 29 mmol/L (21-32); GLUCOSE,RANDOM 87 mg/dL (74-106)
[2018-01-16 15:07] LABS: ANISOCYTOSIS 1+; MACROCYTOSIS 1+; PLATELET ESTIMATE DECREASED
[2018-01-16] MEDS ORDERED: PT OWN MED DRAWER 7, Y5N ONE (20:57)
[2018-01-16] MEDS: THIAMINE HCL 100 MG TABLET (FP) PO SCH (22:01)
[2018-01-16] MEDS: MELATONIN 5 MG TABLETS PO PRN (22:02)
[2018-01-16] MEDS: CYCLOBENZAPRINE HCL 10 MG TABLET (FP) PO PRN (22:03)
[2018-01-17] MEDS: IBUPROFEN 400 MG TABLET (FP) PO PRN (09:01)
[2018-01-17] MEDS: PRENATAL VITAMINS W/ FOLIC ACID TABLET (FP) PO SCH (09:01)
[2018-01-17] MEDS: CYCLOBENZAPRINE HCL 10 MG TABLET (FP) PO PRN ×2 (09:02→22:03)
[2018-01-17] MEDS: CHLORHEXIDINE GLUCONATE 0.12% 15ML CUP MM SCH ×2 (09:03→22:04)
[2018-01-17] MEDS: NICOTINE 21 MG/24 HOURS TOPICAL PATCH TD SCH (09:03)
[2018-01-17] MEDS: PENICILLIN V POTASSIUM 500 MG TABLET PO SCH ×4 (10:30→23:45)
[2018-01-17] MEDS: TAMSULOSIN HCL 0.4 MG CAP.ER.24H (FP) PO SCH ×2 (10:30→22:03)
[2018-01-17] MEDS: MELATONIN 5 MG TABLETS PO PRN (22:03)
[2018-01-17] MEDS: THIAMINE HCL 100 MG TABLET (FP) PO SCH (22:04)
[2018-01-18] MEDS: IBUPROFEN 400 MG TABLET (FP) PO PRN (03:13)
[2018-01-18] MEDS: PENICILLIN V POTASSIUM 500 MG TABLET PO SCH ×2 (06:28→12:15)
[2018-01-18] MEDS: TAMSULOSIN HCL 0.4 MG CAP.ER.24H (FP) PO SCH ×2 (07:31→21:44)
[2018-01-18] MEDS: CHLORHEXIDINE GLUCONATE 0.12% 15ML CUP MM SCH ×2 (10:21→21:44)
[2018-01-18] MEDS: PRENATAL VITAMINS W/ FOLIC ACID TABLET (FP) PO SCH (10:21)
[2018-01-18] MEDS: NICOTINE 21 MG/24 HOURS TOPICAL PATCH TD SCH (10:21)
--- NOTE | 2018-01-18 19:14 | PN ---
Psychiatric Progress Note Vital Signs: Vital Signs Period Temp Pulse Resp BP Sys/Garland Pulse Ox Last 24 Hr 98.3 F 94 18-18 104/69 Date of Session: 01/18/18 Chief Complaint:: Discharge Note HPI: Patient will complete this program on 01/19/18. He has met his treatment goals and will continue to [facility] at [address] [place] [address]. He is stable for discharge on 01/19/18 Current Medications: Active Medications Generic Name Dose Route Start Last Admin Trade Name Freq PRN Reason Stop Dose Admin Acetaminophen 650 mg 01/02/18 15:02 Tylenol - PO Q4H PRN FEVER Al Hydroxide/Mg Hydroxide 30 ml 01/02/18 15:02 01/03/18 06:20 Mylanta Oral Suspension - PO 30 ml Q6H PRN Administration DYSPEPSIA Albuterol Sulfate 2 puff 01/02/18 18:39 Ventolin Hfa Inhaler - IH Q4H PRN SHORT OF BREATH/WHEEZING Chlorhexidine Gluconate 15 ml 01/11/18 14:00 01/18/18 10:21 Peridex - MM Not Given BID AARTI Cyclobenzaprine HCl 10 mg 01/05/18 13:24 01/17/18 22:03 Flexeril - PO 10 mg TID PRN Administration MUSCLE SPASMS Eucalyptus/Menthol/Phenol/Sorbitol 1 each 01/02/18 15:02 01/07/18 06:24 Cepastat Lozenge - MM 1 each Q4H PRN Administration SORE THROAT Guaifenesin 10 ml 01/02/18 15:02 Robitussin Dm - PO Q6H PRN COUGH Ibuprofen 400 mg 01/02/18 15:02 01/18/18 03:13 Motrin - PO 400 mg Q6H PRN Administration Pain Level 4-6 Lidocaine HCl 15 ml 01/07/18 11:59 01/08/18 02:13 Xylocaine 2% Viscous Oral - MM 15 ml Q6H PRN Administration ORAL PAIN/MOUTH SORES Loperamide HCl 4 mg 01/02/18 15:02 Imodium - PO Q6H PRN DIARRHEA Magnesium Citrate 300 ml 01/02/18 15:02 Citroma - PO Q48H PRN CONSTIPATION Magnesium Hydroxide 30 ml 01/02/18 15:02 Milk Of Magnesia - PO DAILY PRN CONSTIPATION Melatonin 5 mg 01/02/18 22:00 01/17/18 22:03 Melatonin PO 5 mg HS PRN Administration INSOMNIA Nicotine 21 mg 01/03/18 10:00 01/18/18 10:21 Nicoderm Patch - TD Not Given DAILY AARTI Nicotine Polacrilex 2 mg 01/02/18 15:02 Nicorette Gum - BUC Q2H PRN NICOTINE REPLACEMENT RX Multivit/Folic Acid/Iron 1 tab 01/03/18 10:00 01/18/18 10:21 Vitamins (Sjr) - PO Not Given DAILY AARTI Pseudoephedrine/Triprolidine 1 combo 01/02/18 15:02 Actifed - PO TID PRN NASAL CONGESTION Tamsulosin HCl 0.4 mg 01/02/18 20:30 01/18/18 07:31 Flomax - PO 0.4 mg BID@0830,2030 AARTI Administration Thiamine HCl 100 mg 01/02/18 22:00 01/17/18 22:04 Vitamin B1 - PO 100 mg HS AARTI Administration Current Side Effect: No Lab tests ordered: Yes Lab tests reviewed: Yes Provider note:: Patient will complete this program on 01/19/18. He has met his treatment goals and will continue to address his issues in outpatient treatment at [facility] at [address] [place] [address]. Told investigative writer that from his participation in this program, he has learned the value of "Stay away from "People, Places and Things". He is stable for discharge on 01/19/18 Total face to face time:: 35 Mental Status Exam - Mental Status Exam Alert and Oriented to: Time, Place, Person Cognitive Function: Fair Patient Appearance: Well Groomed Mood: Hopeful, Euthymic Affect: Appropriate Patient Behavior: Cooperative Speech Pattern: Clear Voice Loudness: Normal Thought Process: Intact Thought Disorder: Not Present Hallucinations: None Suicidal Ideation: Denies Homicidal Ideation: Denies Insight/Judgement: Fair Sleep: Fair Appetite: Good Muscle strength/Tone: Normal Gait/Station: Normal Psychiatric Treatment Plan - Problem List (1) Alcohol dependence Current Visit: Yes (2) Opioid dependence Current Visit: Yes (3) Nicotine dependence Current Visit: No Qualifiers: Nicotine product type: cigarettes Substance use status: in withdrawal Qualified Code(s): F17.213 - Nicotine dependence, cigarettes, with withdrawal (4) Substance induced mood disorder Current Visit: Yes (5) Substance-induced sleep disorder Current Visit: Yes (6) HIV positive Current Visit: No (7) Positive PPD Current Visit: No (8) Bronchial asthma Current Visit: Yes Initial treatment plan: Patient will be discharged tomorrow and referred to [facility] in the [place] for outpatient treatment
[2018-01-18] MEDS: MELATONIN 5 MG TABLETS PO PRN (21:44)
[2018-01-18] MEDS: THIAMINE HCL 100 MG TABLET (FP) PO SCH (21:44)
[2018-01-18] MEDS: CYCLOBENZAPRINE HCL 10 MG TABLET (FP) PO PRN (21:45)
[2018-01-19] MEDS: TAMSULOSIN HCL 0.4 MG CAP.ER.24H (FP) PO SCH ×2 (07:59→20:30)
[2018-01-19] MEDS: CHLORHEXIDINE GLUCONATE 0.12% 15ML CUP MM SCH ×2 (10:00→21:44)
[2018-01-19] MEDS: PRENATAL VITAMINS W/ FOLIC ACID TABLET (FP) PO SCH (10:00)
[2018-01-19] MEDS: NICOTINE 21 MG/24 HOURS TOPICAL PATCH TD SCH (10:00)
[2018-01-19] MEDS: CYCLOBENZAPRINE HCL 10 MG TABLET (FP) PO PRN ×2 (10:01→21:43)
[2018-01-19] MEDS: IBUPROFEN 400 MG TABLET (FP) PO PRN ×2 (10:01→21:43)
[2018-01-19] MEDS: MELATONIN 5 MG TABLETS PO PRN (21:43)
[2018-01-19] MEDS: THIAMINE HCL 100 MG TABLET (FP) PO SCH (21:43)
[2018-01-20] MEDS: TAMSULOSIN HCL 0.4 MG CAP.ER.24H (FP) PO SCH ×2 (09:30→21:27)
[2018-01-20] MEDS: NICOTINE 21 MG/24 HOURS TOPICAL PATCH TD SCH (10:16)
[2018-01-20] MEDS: CHLORHEXIDINE GLUCONATE 0.12% 15ML CUP MM SCH ×2 (10:16→21:29)
[2018-01-20] MEDS: PRENATAL VITAMINS W/ FOLIC ACID TABLET (FP) PO SCH (10:16)
[2018-01-20] MEDS: CYCLOBENZAPRINE HCL 10 MG TABLET (FP) PO PRN ×2 (10:17→21:28)
[2018-01-20] MEDS: THIAMINE HCL 100 MG TABLET (FP) PO SCH (21:26)
[2018-01-20] MEDS: MELATONIN 5 MG TABLETS PO PRN (21:26)
[2018-01-20] MEDS: IBUPROFEN 400 MG TABLET (FP) PO PRN (21:28)
[2018-01-21] MEDS: TAMSULOSIN HCL 0.4 MG CAP.ER.24H (FP) PO SCH ×2 (09:30→20:30)
[2018-01-21] MEDS: NICOTINE 21 MG/24 HOURS TOPICAL PATCH TD SCH (10:20)
[2018-01-21] MEDS: CHLORHEXIDINE GLUCONATE 0.12% 15ML CUP MM SCH ×2 (10:20→21:48)
[2018-01-21] MEDS: PRENATAL VITAMINS W/ FOLIC ACID TABLET (FP) PO SCH (10:20)
[2018-01-21] MEDS: MELATONIN 5 MG TABLETS PO PRN (21:47)
[2018-01-21] MEDS: THIAMINE HCL 100 MG TABLET (FP) PO SCH (21:47)
[2018-01-21] MEDS: CYCLOBENZAPRINE HCL 10 MG TABLET (FP) PO PRN (21:47)
[2018-01-22] MEDS: TAMSULOSIN HCL 0.4 MG CAP.ER.24H (FP) PO SCH ×2 (07:57→19:59)
[2018-01-22] MEDS: NICOTINE 21 MG/24 HOURS TOPICAL PATCH TD SCH (10:28)
[2018-01-22] MEDS: CHLORHEXIDINE GLUCONATE 0.12% 15ML CUP MM SCH ×2 (10:29→22:08)
[2018-01-22] MEDS: PRENATAL VITAMINS W/ FOLIC ACID TABLET (FP) PO SCH (10:29)
[2018-01-22] MEDS: THIAMINE HCL 100 MG TABLET (FP) PO SCH (22:05)
[2018-01-22] MEDS: CYCLOBENZAPRINE HCL 10 MG TABLET (FP) PO PRN (22:05)
[2018-01-22] MEDS: MELATONIN 5 MG TABLETS PO PRN (22:05)
[2018-01-23] MEDS: MENTHOL/PHENOL 1 EACH UD MM PRN (06:19)
[2018-01-23 07:08] VITALS: BP 105/72; PULSE 102; TEMP 98.3
[2018-01-23] MEDS: TAMSULOSIN HCL 0.4 MG CAP.ER.24H (FP) PO SCH (07:53)
--- NOTE | 2018-01-23 09:12 | PN ---
Psychiatric Progress Note Vital Signs: Vital Signs Period Temp Pulse Resp BP Sys/Garland Pulse Ox Last 24 Hr 98.3 F 102 18-18 105/72 Date of Session: 01/23/18 Chief Complaint:: "Discharge." HPI: Patient admitted to [facility] [place] inpatient rehabilitation program for heroin and cocaine dependence. ROS: Significant for HIV infection since 1987 (no compliant with ART medications ), hypertension, bronchial asthma, hepatitis C past history of withdrawal- related seizures, treatment for syphilis and past surgery for cancer of thymus gland ([id number]). Smokes cigarettes 1ppd Current Medications: Active Medications Generic Name Dose Route Start Last Admin Trade Name Freq PRN Reason Stop Dose Admin Acetaminophen 650 mg 01/02/18 15:02 Tylenol - PO Q4H PRN FEVER Al Hydroxide/Mg Hydroxide 30 ml 01/02/18 15:02 01/03/18 06:20 Mylanta Oral Suspension - PO 30 ml Q6H PRN Administration DYSPEPSIA Albuterol Sulfate 2 puff 01/02/18 18:39 Ventolin Hfa Inhaler - IH Q4H PRN SHORT OF BREATH/WHEEZING Chlorhexidine Gluconate 15 ml 01/11/18 14:00 01/22/18 22:08 Peridex - MM Not Given BID AARTI Cyclobenzaprine HCl 10 mg 01/05/18 13:24 01/22/18 22:05 Flexeril - PO 10 mg TID PRN Administration MUSCLE SPASMS Eucalyptus/Menthol/Phenol/Sorbitol 1 each 01/02/18 15:02 01/23/18 06:19 Cepastat Lozenge - MM 1 each Q4H PRN Administration SORE THROAT Guaifenesin 10 ml 01/02/18 15:02 Robitussin Dm - PO Q6H PRN COUGH Ibuprofen 400 mg 01/02/18 15:02 01/20/18 21:28 Motrin - PO 400 mg Q6H PRN Administration Pain Level 4-6 Lidocaine HCl 15 ml 01/07/18 11:59 01/08/18 02:13 Xylocaine 2% Viscous Oral - MM 15 ml Q6H PRN Administration ORAL PAIN/MOUTH SORES Loperamide HCl 4 mg 01/02/18 15:02 Imodium - PO Q6H PRN DIARRHEA Magnesium Citrate 300 ml 01/02/18 15:02 Citroma - PO Q48H PRN CONSTIPATION Magnesium Hydroxide 30 ml 01/02/18 15:02 Milk Of Magnesia - PO DAILY PRN CONSTIPATION Melatonin 5 mg 01/02/18 22:00 01/22/18 22:05 Melatonin PO 5 mg HS PRN Administration INSOMNIA Nicotine 21 mg 01/03/18 10:00 01/22/18 10:28 Nicoderm Patch - TD Not Given DAILY AARTI Nicotine Polacrilex 2 mg 01/02/18 15:02 Nicorette Gum - BUC Q2H PRN NICOTINE REPLACEMENT RX Multivit/Folic Acid/Iron 1 tab 01/03/18 10:00 01/22/18 10:29 Vitamins (Sjr) - PO Not Given DAILY AARTI Pseudoephedrine/Triprolidine 1 combo 01/02/18 15:02 01/22/18 06:52 Actifed - PO 1 combo TID PRN Administration NASAL CONGESTION Tamsulosin HCl 0.4 mg 01/02/18 20:30 01/23/18 07:53 Flomax - PO 0.4 mg BID@0830,2030 AARTI Administration Thiamine HCl 100 mg 01/02/18 22:00 01/22/18 22:05 Vitamin B1 - PO 100 mg HS AARTI Administration Medication(s) Change(s): No. Current Side Effect: No Lab tests ordered: No Lab tests reviewed: Yes Provider note:: Patient will complete the inpatient rehabilitation program on . He has met his treatment goals and will address his issues at the [facility] in the [place], [place]. Patient is able to understand the consequences of his addiction and the need to make positive changes to his lifestyle in order to maintain abstinence. Pt. is stable for discharge on 01/23/18. Total face to face time:: 35 Mental Status Exam - Mental Status Exam Alert and Oriented to: Time, Place, Person Cognitive Function: Good Patient Appearance: Well Groomed Mood: Hopeful Affect: Mood Congruent Patient Behavior: Appropriate, Cooperative Speech Pattern: Clear, Appropriate Voice Loudness: Normal Thought Process: Intact, Goal Oriented Thought Disorder: Not Present Hallucinations: Denies Suicidal Ideation: Denies Homicidal Ideation: Denies Insight/Judgement: Poor Sleep: Well Appetite: Good Muscle strength/Tone: Normal Gait/Station: Normal Psychiatric Treatment Plan - Problem List (1) Alcohol dependence Current Visit: Yes (2) Opioid dependence Current Visit: Yes (3) Substance induced mood disorder Current Visit: Yes (4) Substance-induced sleep disorder Current Visit: Yes (5) Nicotine dependence Current Visit: No Qualifiers: Nicotine product type: cigarettes Substance use status: in withdrawal Qualified Code(s): F17.213 - Nicotine dependence, cigarettes, with withdrawal
[2018-01-23] MEDS: NICOTINE 21 MG/24 HOURS TOPICAL PATCH TD SCH (09:16)
[2018-01-23] MEDS: CHLORHEXIDINE GLUCONATE 0.12% 15ML CUP MM SCH (09:16)
[2018-01-23] MEDS: PRENATAL VITAMINS W/ FOLIC ACID TABLET (FP) PO SCH (09:16)
[2018-01-23] MEDS ORDERED: PT OWN MED DRAWER 7, Y5N ONE (10:44)
== END 2018-01-23 09:40 | disposition home or self-care (01) | DRG 772 ==
LOC: YASAS 14:46 → Y3W 14:47
PROVIDERS: ADMIT Psychiatry & Neurology Psychiatry; ATTEND Psychiatry & Neurology Psychiatry
PROC: HZ42ZZZ Group Counseling for Substance Abuse Treatment, Cognitive-Behavioral (ICD-10-PCS; principal; 2018-01-02)
DX: F11.20 Opioid dependence, uncomplicated (principal); F10.20 Alcohol dependence, uncomplicated; F17.213 Nicotine dependence, cigarettes, with withdrawal; F19.24 Other psychoactive substance dependence with psychoactive substance-induced mood disorder; F19.282 Other psychoactive substance dependence with psychoactive substance-induced sleep disorder; B18.2 Chronic viral hepatitis C; B37.0 Candidal stomatitis; Z21 Asymptomatic human immunodeficiency virus [HIV] infection status; J02.0 Streptococcal pharyngitis; B95.3 Streptococcus pneumoniae as the cause of diseases classified elsewhere; M79.1 Myalgia; Z86.19 Personal history of other infectious and parasitic diseases; Z86.69 Personal history of other diseases of the nervous system and sense organs
CPT/HCPCS: 36415; 80048; 85025; 87070; 87077; Q0162

== ENCOUNTER 2021-09-27 09:31 | Inpatient (IN) | payer OTHER ==
[2021-09-27] MEDS ORDERED: MAGNESIUM HYDROX 2400MG/30ML ORAL SUSPENSION 30 ML CUP PO PRN (09:58)
[2021-09-27] MEDS ORDERED: MENTHOL/PHENOL 1 EACH UD MM PRN (09:58)
[2021-09-27] MEDS ORDERED: MAGNESIUM CITRATE 300 ML BOTTLE PO PRN (09:58)
[2021-09-27] MEDS ORDERED: BISMUTH SUBSALICYLATE 524 MG/30 ML PO PRN (09:58)
[2021-09-27] MEDS ORDERED: MAG HYDROX/AL HYDROX/SIMETH 30 ML UNIT-DOSE CUP PO PRN (09:58)
[2021-09-27] MEDS ORDERED: ACETAMINOPHEN 325 MG TABLET (FP) PO PRN (09:58)
[2021-09-27] MEDS ORDERED: NICOTINE 10 MG CARTRIDGE (INHALER) IH PRN (09:58)
[2021-09-27] MEDS ORDERED: cloNIDine HCL 0.1 MG TABLET PO PRN (09:58)
[2021-09-27] MEDS ORDERED: ONDANSETRON *ODT* 4 MG TABLET SL PRN (09:58)
[2021-09-27] MEDS ORDERED: ALBUTEROL SO4 HFA INHALER IH PRN (10:00)
[2021-09-27 10:42] VITALS: BMI 24.2
[2021-09-27] MEDS ORDERED: BUPRENORPHINE HCL 150 MCG, BUPRENORPHINE HCL 75 MCG BC ONE (10:45)
[2021-09-27] MEDS ORDERED: BUPRENORPHINE HCL 75 MCG FILM BC ONE (12:31)
[2021-09-27] MEDS ORDERED: BUPRENORPHINE HCL 150 MCG FILM BC ONE (12:32)
[2021-09-27] MEDS: TAMSULOSIN HCL 0.4 MG CAP PO SCH ×2 (12:33→21:37)
[2021-09-27] MEDS: hydrOXYzine PAMOATE 25 MG CAPSULE (FP) PO SCH ×4 (12:33→21:37)
[2021-09-27] MEDS: METHOCARBAMOL 500 MG TABLET PO PRN ×2 (12:33→18:28)
[2021-09-27] MEDS: NICOTINE 14 MG/24 HOURS TOPICAL PATCH TD SCH (12:34)
[2021-09-27] MEDS: PRENATAL VITAMINS W/ FOLIC ACID TABLET (FP) PO SCH (12:34)
[2021-09-27 14:47] LABS: CALCIUM 9.2 mg/dL (8.5-10.1)
[2021-09-27 14:48] LABS: ALBUMIN 3.3 g/dl (3.4-5.0); BLOOD UREA NITROGEN 24.1 mg/dL (7-18)
[2021-09-27 14:53] LABS: BILIRUBIN,TOTAL 0.6 mg/dL (0.2-1)
[2021-09-27 14:58] LABS: HEMATOCRIT 41.9 % (35.4-49); HEMOGLOBIN 13.6 GM/dL (11.7-16.9); MCH 28.8 pg (25.7-33.7); MCHC 32.5 g/dl (32.0-35.9); MEAN CELL VOLUME 88.8 fl (80-96); MEAN PLT VOLUME 10.8 fl (7.5-11.1); PLATELET COUNT 183 10^3/uL (134-434); RBC 4.72 M/mm3 (4.00-5.60); RDW 14.9 % (11.9-15.9); WHITE BLOOD COUNT 5.7 K/mm3 (4.0-10.0)
[2021-09-27] MEDS: IBUPROFEN 400 MG TABLET (FP) PO PRN (18:26)
[2021-09-27] MEDS: AMOX TR/POT CLAV 500MG/125MG TABLETS (FP) PO SCH (21:13)
[2021-09-27] MEDS: MELATONIN 5 MG TABLETS PO SCH (21:36)
[2021-09-27] MEDS: THIAMINE HCL 100 MG TABLET (FP) PO SCH (21:37)
[2021-09-28] MEDS ORDERED: BUPRENORPHINE HCL 75 MCG FILM BC ONE ×2 (05:19→17:18)
[2021-09-28] MEDS: BUPRENORPHINE HCL 150 MCG, BUPRENORPHINE HCL 75 MCG BC SCH ×2 (05:20→17:19)
[2021-09-28] MEDS ORDERED: BUPRENORPHINE HCL 150 MCG FILM BC ONE ×2 (05:20→17:19)
[2021-09-28] MEDS: hydrOXYzine PAMOATE 25 MG CAPSULE (FP) PO SCH ×5 (05:21→22:12)
[2021-09-28] MEDS: METHOCARBAMOL 500 MG TABLET PO PRN ×3 (05:22→17:27)
[2021-09-28] MEDS: AMOX TR/POT CLAV 500MG/125MG TABLETS (FP) PO SCH ×2 (08:23→17:17)
[2021-09-28] MEDS: TAMSULOSIN HCL 0.4 MG CAP PO SCH ×2 (10:39→22:12)
[2021-09-28] MEDS: PRENATAL VITAMINS W/ FOLIC ACID TABLET (FP) PO SCH (10:39)
[2021-09-28] MEDS: IBUPROFEN 400 MG TABLET (FP) PO PRN ×2 (10:40→22:15)
[2021-09-28] MEDS: NICOTINE 14 MG/24 HOURS TOPICAL PATCH TD SCH (10:40)
[2021-09-28] MEDS ORDERED: FLU VACC QS2021-22(6MOS UP)/PF 60 MCG/0.5 ML SYRINGE IM ONE (12:00)
[2021-09-28] MEDS: LIDOCAINE 5% TOPICAL PATCH TP SCH (15:28)
[2021-09-28] MEDS: THIAMINE HCL 100 MG TABLET (FP) PO SCH (22:12)
[2021-09-28] MEDS: MELATONIN 5 MG TABLETS PO SCH (22:12)
[2021-09-28] MEDS: LIDOCAINE PATCH REMOVAL MC SCH (22:13)
[2021-09-29] MEDS: hydrOXYzine PAMOATE 25 MG CAPSULE (FP) PO SCH ×5 (06:00→22:20)
[2021-09-29] MEDS: BUPRENORPHINE HCL 450 MCG FILM BC SCH ×2 (06:00→17:46)
[2021-09-29] MEDS: AMOX TR/POT CLAV 500MG/125MG TABLETS (FP) PO SCH ×2 (07:32→17:47)
[2021-09-29] MEDS ORDERED: POVIDONE-IODINE 10% SOLN 118 ML BOTTLE TP ONE (10:20)
[2021-09-29] MEDS: PRENATAL VITAMINS W/ FOLIC ACID TABLET (FP) PO SCH (11:04)
[2021-09-29] MEDS: LIDOCAINE 5% TOPICAL PATCH TP SCH (11:04)
[2021-09-29] MEDS: NICOTINE 14 MG/24 HOURS TOPICAL PATCH TD SCH (11:04)
[2021-09-29] MEDS: IBUPROFEN 400 MG TABLET (FP) PO PRN (11:06)
[2021-09-29] MEDS: TAMSULOSIN HCL 0.4 MG CAP PO SCH ×2 (12:11→22:19)
[2021-09-29] MEDS: ACETAMINOPHEN 325 MG TABLET (FP) PO PRN ×2 (17:47→22:52)
[2021-09-29] MEDS: LIDOCAINE PATCH REMOVAL MC SCH (22:19)
[2021-09-29] MEDS: MELATONIN 5 MG TABLETS PO SCH (22:20)
[2021-09-29] MEDS: THIAMINE HCL 100 MG TABLET (FP) PO SCH (22:20)
[2021-09-30] MEDS: BUPRENORPHINE/NALOXONE 4 MG/1 MG FILM PACKET SL SCH ×2 (06:01→17:43)
[2021-09-30] MEDS: hydrOXYzine PAMOATE 25 MG CAPSULE (FP) PO SCH ×5 (06:01→22:22)
[2021-09-30] MEDS: METHOCARBAMOL 500 MG TABLET PO PRN ×3 (06:03→17:44)
[2021-09-30] MEDS: AMOX TR/POT CLAV 500MG/125MG TABLETS (FP) PO SCH ×2 (07:05→17:42)
[2021-09-30] MEDS: TAMSULOSIN HCL 0.4 MG CAP PO SCH ×2 (10:35→22:25)
[2021-09-30] MEDS: LIDOCAINE 5% TOPICAL PATCH TP SCH (10:35)
[2021-09-30] MEDS: PRENATAL VITAMINS W/ FOLIC ACID TABLET (FP) PO SCH (10:35)
[2021-09-30] MEDS: NICOTINE 14 MG/24 HOURS TOPICAL PATCH TD SCH (10:36)
[2021-09-30] MEDS: MELATONIN 5 MG TABLETS PO SCH (22:22)
[2021-09-30] MEDS: THIAMINE HCL 100 MG TABLET (FP) PO SCH (22:22)
[2021-09-30] MEDS: LIDOCAINE PATCH REMOVAL MC SCH (22:22)
[2021-09-30] MEDS: ACETAMINOPHEN 325 MG TABLET (FP) PO PRN (22:24)
[2021-10-01] MEDS: hydrOXYzine PAMOATE 25 MG CAPSULE (FP) PO SCH (05:19)
[2021-10-01] MEDS: METHOCARBAMOL 500 MG TABLET PO PRN (05:20)
[2021-10-01] MEDS ORDERED: BUPRENORPHINE/NALOXONE 8 MG/2 MG FILM PACKET SL ONE (06:00)
[2021-10-01] MEDS: AMOX TR/POT CLAV 500MG/125MG TABLETS (FP) PO SCH (07:06)
[2021-10-01] MEDS ORDERED: POVIDONE-IODINE OINTMENT 10% - 28.4 GM TUBE TP ONE (08:58)
[2021-10-01 09:23] VITALS: BP 125/75; PULSE 99; TEMP 97.3
[2021-10-01] MEDS ORDERED: cloNIDine HCL 0.1 MG TABLET PO ONE (10:45)
== END 2021-10-01 09:47 | disposition other institution (70) | DRG 773 ==
LOC: YASAS 09:31 → Y6N 10:57
PROVIDERS: ADMIT Allergy & Immunology; ATTEND Allergy & Immunology
PROC: HZ2ZZZZ Detoxification Services for Substance Abuse Treatment (ICD-10-PCS; principal; 2021-09-27)
DX: F11.23 Opioid dependence with withdrawal (principal); F10.230 Alcohol dependence with withdrawal, uncomplicated; F14.20 Cocaine dependence, uncomplicated; F17.210 Nicotine dependence, cigarettes, uncomplicated; Z21 Asymptomatic human immunodeficiency virus [HIV] infection status; I10 Essential (primary) hypertension; J45.909 Unspecified asthma, uncomplicated; M25.511 Pain in right shoulder; G89.29 Other chronic pain; L02.512 Cutaneous abscess of left hand; Z87.2 Personal history of diseases of the skin and subcutaneous tissue; R79.89 Other specified abnormal findings of blood chemistry; Z59.01 Sheltered homelessness
CPT/HCPCS: 36415; 71046-TC-FY; 80053; 85027; 86780; 90686; 93005; 93010; C9803; G0008; J0735; U0003; U0005

== ENCOUNTER 2021-12-14 17:36 | Inpatient (IN) | payer OTHER ==
[2021-12-14 19:28] VITALS: BMI 24.2
[2021-12-14] MEDS ORDERED: NICOTINE POLACRILEX 2 MG GUM BUC PRN (21:32)
[2021-12-14] MEDS ORDERED: methaDONE HCL 10 MG TABLET (FOR DETOX USE ONLY) PO ONE (21:32)
[2021-12-14] MEDS ORDERED: MAG HYDROX/AL HYDROX/SIMETH 30 ML UNIT-DOSE CUP PO PRN (21:32)
[2021-12-14] MEDS ORDERED: DICYCLOMINE HCL 10 MG CAPSULE PO PRN (21:32)
[2021-12-14] MEDS ORDERED: LOPERAMIDE HCL 2 MG CAPSULE PO PRN (21:32)
[2021-12-14] MEDS ORDERED: ACETAMINOPHEN 325 MG TABLET (FP) PO PRN ×2 (21:32)
[2021-12-14] MEDS ORDERED: MAGNESIUM HYDROX 2400MG/30ML ORAL SUSPENSION 30 ML CUP PO PRN (21:32)
[2021-12-14] MEDS ORDERED: MAGNESIUM CITRATE 300 ML BOTTLE PO PRN (21:32)
[2021-12-14] MEDS ORDERED: cloNIDine HCL 0.1 MG TABLET PO PRN (21:32)
[2021-12-14] MEDS ORDERED: BISMUTH SUBSALICYLATE 524 MG/30 ML PO PRN (21:32)
[2021-12-14] MEDS ORDERED: ONDANSETRON *ODT* 4 MG TABLET SL PRN (21:32)
[2021-12-15] MEDS ORDERED: methaDONE HCL 10 MG TABLET (FOR DETOX USE ONLY) PO ONE (02:28)
[2021-12-15] MEDS: MELATONIN 5 MG TABLETS PO SCH ×2 (03:19→22:11)
[2021-12-15] MEDS: THIAMINE HCL 100 MG TABLET (FP) PO SCH ×2 (03:19→22:11)
[2021-12-15] MEDS: cloNIDine HCL 0.1 MG TABLET PO PRN ×2 (06:05→17:31)
[2021-12-15] MEDS ORDERED: BUPRENORPHINE HCL 150 MCG, BUPRENORPHINE HCL 75 MCG BC ONE (10:27)
[2021-12-15] MEDS ORDERED: BUPRENORPHINE HCL 150 MCG, BUPRENORPHINE HCL 75 MCG BC PRN (10:27)
[2021-12-15] MEDS ORDERED: cloNIDine HCL 0.1 MG TABLET PO ONE (10:27)
[2021-12-15] MEDS ORDERED: ALBUTEROL SO4 HFA INHALER IH PRN (10:41)
[2021-12-15 10:48] LABS: ALBUMIN 2.7 g/dl (3.4-5.0); BLOOD UREA NITROGEN 13.9 mg/dL (7-18); CALCIUM 8.7 mg/dL (8.5-10.1); HEMOGLOBIN 11.8 GM/dL (11.7-16.9); MCH 30.4 pg (25.7-33.7); MCHC 33.8 g/dl (32.0-35.9); MEAN CELL VOLUME 89.8 fl (80-96); MEAN PLT VOLUME 11.1 fl (7.5-11.1); PLATELET COUNT 141 10^3/uL (134-434); RDW 14.7 % (11.9-15.9); WHITE BLOOD COUNT 3.2 K/mm3 (4.0-10.0)
[2021-12-15] MEDS: PRENATAL VITAMINS W/ FOLIC ACID TABLET (FP) PO SCH (10:48)
[2021-12-15] MEDS ORDERED: BUPRENORPHINE HCL 150 MCG FILM BC ONE (10:50)
[2021-12-15] MEDS ORDERED: BUPRENORPHINE HCL 75 MCG FILM BC ONE (10:51)
[2021-12-15 10:56] LABS: BILIRUBIN,TOTAL 0.3 mg/dL (0.2-1); TOT PROT 7.7 g/dl (6.4-8.2)
[2021-12-15] MEDS: HYDROCHLOROTHIAZIDE 12.5 MG CAPSULE (FP) PO SCH (11:55)
[2021-12-15] MEDS: AMOX TR/POT CLAV 875MG/125MG TABLETS (FP) PO SCH ×2 (11:55→22:11)
[2021-12-15] MEDS: ACYCLOVIR 400 MG TABLET PO SCH (11:56)
[2021-12-15] MEDS: NICOTINE 14 MG/24 HOURS TOPICAL PATCH TD SCH (12:30)
[2021-12-15] MEDS ORDERED: cloNIDine HCL 0.1 MG TABLET PO PRN (14:27)
[2021-12-15] MEDS: TOBRAMYCIN 0.3% OPHTH SOLN 5 ML BOTTLE OU SCH ×3 (14:27→22:11)
[2021-12-15] MEDS: FINASTERIDE 5 MG TABLET (FP) PO SCH (17:30)
[2021-12-15] MEDS: TAMSULOSIN HCL 0.4 MG CAP PO SCH (22:11)
[2021-12-15] MEDS: diazePAM 5 MG TABLET PO PRN (22:14)
[2021-12-16] MEDS ORDERED: BUPRENORPHINE HCL 150 MCG, BUPRENORPHINE HCL 75 MCG BC PRN
[2021-12-16] MEDS ORDERED: BUPRENORPHINE HCL 150 MCG FILM BC ONE ×2 (04:49→17:29)
[2021-12-16] MEDS ORDERED: BUPRENORPHINE HCL 75 MCG FILM BC ONE ×2 (04:49→17:29)
[2021-12-16] MEDS: BUPRENORPHINE HCL 150 MCG, BUPRENORPHINE HCL 75 MCG BC SCH ×2 (06:35→17:29)
[2021-12-16] MEDS: cloNIDine HCL 0.1 MG TABLET PO PRN (06:37)
[2021-12-16] MEDS: IBUPROFEN 400 MG TABLET (FP) PO PRN (06:38)
[2021-12-16] MEDS ORDERED: methaDONE HCL 10 MG TABLET (FOR DETOX USE ONLY) PO ONE (10:00)
[2021-12-16] MEDS: AMOX TR/POT CLAV 875MG/125MG TABLETS (FP) PO SCH ×2 (10:25→22:17)
[2021-12-16] MEDS: HYDROCHLOROTHIAZIDE 12.5 MG CAPSULE (FP) PO SCH (10:25)
[2021-12-16] MEDS: ACYCLOVIR 400 MG TABLET PO SCH (10:25)
[2021-12-16] MEDS: FINASTERIDE 5 MG TABLET (FP) PO SCH (10:26)
[2021-12-16] MEDS: TOBRAMYCIN 0.3% OPHTH SOLN 5 ML BOTTLE OU SCH ×4 (10:26→22:17)
[2021-12-16] MEDS: METHOCARBAMOL 500 MG TABLET PO PRN (10:26)
[2021-12-16] MEDS: NICOTINE 14 MG/24 HOURS TOPICAL PATCH TD SCH (10:26)
[2021-12-16] MEDS: PRENATAL VITAMINS W/ FOLIC ACID TABLET (FP) PO SCH (10:26)
[2021-12-16] MEDS ORDERED: P-EPHED 60MG/TRIPROLIDI 2.5MG TABLET PO PRN (14:36)
[2021-12-16 15:09] LABS: SARS-CoV-2 NAA Not Detected (Not Detected)
[2021-12-16] MEDS: BENZOCAINE/MENTHOL (CHLORASEPTIC ) LOZENGE MM PRN (22:16)
[2021-12-16] MEDS: TAMSULOSIN HCL 0.4 MG CAP PO SCH (22:17)
[2021-12-16] MEDS: THIAMINE HCL 100 MG TABLET (FP) PO SCH (22:17)
[2021-12-16] MEDS: MELATONIN 5 MG TABLETS PO SCH (22:17)
[2021-12-16] MEDS: diazePAM 5 MG TABLET PO PRN (22:18)
[2021-12-17] MEDS: BUPRENORPHINE HCL 450 MCG FILM BC SCH ×2 (07:14→17:56)
[2021-12-17] MEDS: BENZOCAINE/MENTHOL (CHLORASEPTIC ) LOZENGE MM PRN (07:22)
[2021-12-17] MEDS ORDERED: methaDONE HCL 10 MG TABLET (FOR DETOX USE ONLY) PO ONE (10:00)
[2021-12-17] MEDS: PRENATAL VITAMINS W/ FOLIC ACID TABLET (FP) PO SCH (10:22)
[2021-12-17] MEDS: AMOX TR/POT CLAV 875MG/125MG TABLETS (FP) PO SCH ×2 (10:22→22:16)
[2021-12-17] MEDS: HYDROCHLOROTHIAZIDE 12.5 MG CAPSULE (FP) PO SCH (10:22)
[2021-12-17] MEDS: NICOTINE 14 MG/24 HOURS TOPICAL PATCH TD SCH (10:22)
[2021-12-17] MEDS: ACYCLOVIR 400 MG TABLET PO SCH (10:22)
[2021-12-17] MEDS: METHOCARBAMOL 500 MG TABLET PO PRN ×2 (10:22→22:19)
[2021-12-17] MEDS: TOBRAMYCIN 0.3% OPHTH SOLN 5 ML BOTTLE OU SCH ×4 (10:24→22:17)
[2021-12-17] MEDS: diazePAM 5 MG TABLET PO PRN (10:24)
[2021-12-17] MEDS: FINASTERIDE 5 MG TABLET (FP) PO SCH (10:24)
[2021-12-17] MEDS: THIAMINE HCL 100 MG TABLET (FP) PO SCH (22:16)
[2021-12-17] MEDS: MELATONIN 5 MG TABLETS PO SCH (22:16)
[2021-12-17] MEDS: TAMSULOSIN HCL 0.4 MG CAP PO SCH (22:18)
[2021-12-18] MEDS: BUPRENORPHINE/NALOXONE 4 MG/1 MG FILM PACKET SL SCH ×2 (06:58→17:28)
[2021-12-18] MEDS ORDERED: methaDONE HCL 10 MG TABLET (FOR DETOX USE ONLY) PO ONE (10:00)
[2021-12-18] MEDS: PRENATAL VITAMINS W/ FOLIC ACID TABLET (FP) PO SCH (10:50)
[2021-12-18] MEDS: TOBRAMYCIN 0.3% OPHTH SOLN 5 ML BOTTLE OU SCH ×4 (10:50→22:46)
[2021-12-18] MEDS: NICOTINE 14 MG/24 HOURS TOPICAL PATCH TD SCH (10:51)
[2021-12-18] MEDS: ACYCLOVIR 400 MG TABLET PO SCH (10:51)
[2021-12-18] MEDS: FINASTERIDE 5 MG TABLET (FP) PO SCH (10:51)
[2021-12-18] MEDS: HYDROCHLOROTHIAZIDE 12.5 MG CAPSULE (FP) PO SCH (10:52)
[2021-12-18] MEDS: AMOX TR/POT CLAV 875MG/125MG TABLETS (FP) PO SCH ×2 (10:52→22:46)
[2021-12-18] MEDS: TAMSULOSIN HCL 0.4 MG CAP PO SCH (22:45)
[2021-12-18] MEDS: THIAMINE HCL 100 MG TABLET (FP) PO SCH (22:46)
[2021-12-18] MEDS: MELATONIN 5 MG TABLETS PO SCH (22:46)
[2021-12-18] MEDS: METHOCARBAMOL 500 MG TABLET PO PRN (22:46)
[2021-12-18] MEDS: IBUPROFEN 400 MG TABLET (FP) PO PRN (22:47)
[2021-12-19] MEDS ORDERED: BUPRENORPHINE/NALOXONE 8 MG/2 MG FILM PACKET SL ONE (06:00)
[2021-12-19] MEDS: IBUPROFEN 400 MG TABLET (FP) PO PRN (06:02)
[2021-12-19] MEDS: BENZOCAINE/MENTHOL (CHLORASEPTIC ) LOZENGE MM PRN (09:28)
[2021-12-19] MEDS ORDERED: methaDONE HCL 10 MG TABLET (FOR DETOX USE ONLY) PO ONE (10:00)
[2021-12-19] MEDS: PRENATAL VITAMINS W/ FOLIC ACID TABLET (FP) PO SCH (10:10)
[2021-12-19] MEDS: TOBRAMYCIN 0.3% OPHTH SOLN 5 ML BOTTLE OU SCH ×4 (10:10→22:32)
[2021-12-19] MEDS: ACYCLOVIR 400 MG TABLET PO SCH (10:10)
[2021-12-19] MEDS: NICOTINE 14 MG/24 HOURS TOPICAL PATCH TD SCH (10:11)
[2021-12-19] MEDS: HYDROCHLOROTHIAZIDE 12.5 MG CAPSULE (FP) PO SCH (10:11)
[2021-12-19] MEDS: FINASTERIDE 5 MG TABLET (FP) PO SCH (10:11)
[2021-12-19] MEDS: AMOX TR/POT CLAV 875MG/125MG TABLETS (FP) PO SCH ×2 (10:11→22:33)
[2021-12-19] MEDS: METHOCARBAMOL 500 MG TABLET PO PRN ×2 (14:10→22:34)
[2021-12-19] MEDS: TAMSULOSIN HCL 0.4 MG CAP PO SCH (22:33)
[2021-12-19] MEDS: THIAMINE HCL 100 MG TABLET (FP) PO SCH (22:33)
[2021-12-19] MEDS: MELATONIN 5 MG TABLETS PO SCH (22:33)
[2021-12-20] MEDS ORDERED: BUPRENORPHINE/NALOXONE 8 MG/2 MG FILM PACKET SL ONE (08:00)
[2021-12-20] MEDS: ACYCLOVIR 400 MG TABLET PO SCH (10:29)
[2021-12-20] MEDS: PRENATAL VITAMINS W/ FOLIC ACID TABLET (FP) PO SCH (10:29)
[2021-12-20] MEDS: HYDROCHLOROTHIAZIDE 12.5 MG CAPSULE (FP) PO SCH (10:29)
[2021-12-20] MEDS: AMOX TR/POT CLAV 875MG/125MG TABLETS (FP) PO SCH ×2 (10:29→22:20)
[2021-12-20] MEDS: FINASTERIDE 5 MG TABLET (FP) PO SCH (10:30)
[2021-12-20] MEDS: TOBRAMYCIN 0.3% OPHTH SOLN 5 ML BOTTLE OU SCH ×4 (10:31→22:22)
[2021-12-20] MEDS: NICOTINE 14 MG/24 HOURS TOPICAL PATCH TD SCH (10:31)
[2021-12-20] MEDS: CLOTRIMAZOLE 10 MG TROCHE PO SCH ×3 (16:06→22:20)
[2021-12-20] MEDS: MELATONIN 5 MG TABLETS PO SCH (22:20)
[2021-12-20] MEDS: THIAMINE HCL 100 MG TABLET (FP) PO SCH (22:20)
[2021-12-20] MEDS: TAMSULOSIN HCL 0.4 MG CAP PO SCH (22:22)
[2021-12-21] MEDS ORDERED: BUPRENORPHINE/NALOXONE 8 MG/2 MG FILM PACKET SL ONE (06:00)
[2021-12-21] MEDS: CLOTRIMAZOLE 10 MG TROCHE PO SCH ×5 (06:08→23:02)
[2021-12-21] MEDS: PRENATAL VITAMINS W/ FOLIC ACID TABLET (FP) PO SCH (10:22)
[2021-12-21] MEDS: NICOTINE 14 MG/24 HOURS TOPICAL PATCH TD SCH (10:23)
[2021-12-21] MEDS: AMOX TR/POT CLAV 875MG/125MG TABLETS (FP) PO SCH ×2 (10:23→23:02)
[2021-12-21] MEDS: HYDROCHLOROTHIAZIDE 12.5 MG CAPSULE (FP) PO SCH (10:23)
[2021-12-21] MEDS: ACYCLOVIR 400 MG TABLET PO SCH (10:23)
[2021-12-21] MEDS: FINASTERIDE 5 MG TABLET (FP) PO SCH (10:25)
[2021-12-21] MEDS: TOBRAMYCIN 0.3% OPHTH SOLN 5 ML BOTTLE OU SCH ×4 (10:25→23:02)
[2021-12-21] MEDS: THIAMINE HCL 100 MG TABLET (FP) PO SCH (23:02)
[2021-12-21] MEDS: TAMSULOSIN HCL 0.4 MG CAP PO SCH (23:02)
[2021-12-21] MEDS: MELATONIN 5 MG TABLETS PO SCH (23:02)
[2021-12-22] MEDS: CLOTRIMAZOLE 10 MG TROCHE PO SCH ×3 (05:47→14:57)
[2021-12-22] MEDS ORDERED: BUPRENORPHINE/NALOXONE 8 MG/2 MG FILM PACKET SL ONE (06:00)
[2021-12-22] MEDS: TOBRAMYCIN 0.3% OPHTH SOLN 5 ML BOTTLE OU SCH (10:42)
[2021-12-22] MEDS: NICOTINE 14 MG/24 HOURS TOPICAL PATCH TD SCH (10:42)
[2021-12-22] MEDS: AMOX TR/POT CLAV 875MG/125MG TABLETS (FP) PO SCH (10:42)
[2021-12-22] MEDS: ACYCLOVIR 400 MG TABLET PO SCH (10:42)
[2021-12-22] MEDS: HYDROCHLOROTHIAZIDE 12.5 MG CAPSULE (FP) PO SCH (10:42)
[2021-12-22] MEDS: PRENATAL VITAMINS W/ FOLIC ACID TABLET (FP) PO SCH (10:42)
[2021-12-22] MEDS: FINASTERIDE 5 MG TABLET (FP) PO SCH (11:08)
[2021-12-22 13:02] VITALS: BP 131/76; PULSE 75; TEMP 98.2
[2021-12-22] MEDS ORDERED: NICOTINE 10 MG CARTRIDGE (INHALER) IH PRN (14:29)
== END 2021-12-22 14:59 | disposition other institution (70) | DRG 773 ==
LOC: YASAS 17:36 → Y3N 23:15
PROVIDERS: ADMIT Allergy & Immunology; ATTEND Allergy & Immunology
PROC: HZ2ZZZZ Detoxification Services for Substance Abuse Treatment (ICD-10-PCS; principal; 2021-12-14)
DX: F11.23 Opioid dependence with withdrawal (principal); F15.20 Other stimulant dependence, uncomplicated; F17.210 Nicotine dependence, cigarettes, uncomplicated; F32.A Depression, unspecified; I10 Essential (primary) hypertension; B20 Human immunodeficiency virus [HIV] disease; B37.0 Candidal stomatitis; J45.909 Unspecified asthma, uncomplicated; N40.0 Benign prostatic hyperplasia without lower urinary tract symptoms; R94.5 Abnormal results of liver function studies; R00.0 Tachycardia, unspecified; Z85.238 Personal history of other malignant neoplasm of thymus; Z86.19 Personal history of other infectious and parasitic diseases; Z86.11 Personal history of tuberculosis; Z86.69 Personal history of other diseases of the nervous system and sense organs; Z59.00 Homelessness unspecified
CPT/HCPCS: 36415; 80053; 85027; 86780; C9803-CS; J0735; U0003; U0005

== ENCOUNTER 2021-12-22 15:14 | Inpatient (IN) | payer OTHER ==
[2021-12-22] MEDS ORDERED: LOPERAMIDE HCL 2 MG CAPSULE PO PRN (16:13)
[2021-12-22] MEDS ORDERED: MAGNESIUM CITRATE 300 ML BOTTLE PO PRN (16:13)
[2021-12-22] MEDS ORDERED: MAG HYDROX/AL HYDROX/SIMETH 30 ML UNIT-DOSE CUP PO PRN (16:13)
[2021-12-22] MEDS ORDERED: ACETAMINOPHEN 325 MG TABLET (FP) PO PRN (16:13)
[2021-12-22] MEDS ORDERED: guaiFENesin 200 MG/10 ML 10 ML UNIT-DOSE CUPS PO PRN (16:13)
[2021-12-22] MEDS ORDERED: MAGNESIUM HYDROX 2400MG/30ML ORAL SUSPENSION 30 ML CUP PO PRN (16:13)
[2021-12-22] MEDS ORDERED: BENZOCAINE/MENTHOL (CHLORASEPTIC ) LOZENGE MM PRN (16:13)
[2021-12-22] MEDS ORDERED: P-EPHED 60MG/TRIPROLIDI 2.5MG TABLET PO PRN (16:13)
[2021-12-22] MEDS: CLOTRIMAZOLE 10 MG TROCHE PO SCH ×2 (18:06→21:42)
[2021-12-22] MEDS: NICOTINE 10 MG CARTRIDGE (INHALER) IH PRN (18:07)
[2021-12-22] MEDS: MELATONIN 5 MG TABLETS PO SCH (21:42)
[2021-12-22] MEDS: THIAMINE HCL 100 MG TABLET (FP) PO SCH (21:42)
[2021-12-23] MEDS: CLOTRIMAZOLE 10 MG TROCHE PO SCH ×5 (06:19→22:02)
[2021-12-23] MEDS: TAMSULOSIN HCL 0.4 MG CAP PO SCH ×2 (07:32→08:32)
[2021-12-23] MEDS: PRENATAL VITAMINS W/ FOLIC ACID TABLET (FP) PO SCH (09:51)
[2021-12-23] MEDS: NICOTINE 7 MG/24 HOURS TOPICAL PATCH TD SCH (09:51)
[2021-12-23] MEDS: NICOTINE 10 MG CARTRIDGE (INHALER) IH PRN ×2 (09:51→17:22)
[2021-12-23] MEDS: ACYCLOVIR 400 MG TABLET PO SCH (09:52)
[2021-12-23] MEDS: BUPRENORPHINE/NALOXONE 8 MG/2 MG FILM PACKET SL SCH (09:53)
[2021-12-23] MEDS: HYDROCHLOROTHIAZIDE 12.5 MG CAPSULE (FP) PO SCH (09:53)
[2021-12-23] MEDS: FINASTERIDE 5 MG TABLET (FP) PO SCH (11:38)
[2021-12-23] MEDS: MELATONIN 5 MG TABLETS PO SCH (22:01)
[2021-12-23] MEDS: THIAMINE HCL 100 MG TABLET (FP) PO SCH (22:02)
[2021-12-24] MEDS: CLOTRIMAZOLE 10 MG TROCHE PO SCH ×5 (06:29→21:07)
[2021-12-24] MEDS: HYDROCHLOROTHIAZIDE 12.5 MG CAPSULE (FP) PO SCH (09:51)
[2021-12-24] MEDS: ACYCLOVIR 400 MG TABLET PO SCH (09:51)
[2021-12-24] MEDS: PRENATAL VITAMINS W/ FOLIC ACID TABLET (FP) PO SCH (09:51)
[2021-12-24] MEDS: TAMSULOSIN HCL 0.4 MG CAP PO SCH (09:52)
[2021-12-24] MEDS: NICOTINE 7 MG/24 HOURS TOPICAL PATCH TD SCH (09:53)
[2021-12-24] MEDS: BUPRENORPHINE/NALOXONE 8 MG/2 MG FILM PACKET SL SCH (09:53)
[2021-12-24] MEDS: FINASTERIDE 5 MG TABLET (FP) PO SCH (09:54)
[2021-12-24] MEDS: NICOTINE 10 MG CARTRIDGE (INHALER) IH PRN (09:54)
[2021-12-24] MEDS: HYDROCORTISONE 1% TOPICAL CREAM 30 GM TUBE TP SCH ×2 (14:21→21:07)
[2021-12-24] MEDS: MELATONIN 5 MG TABLETS PO SCH (21:06)
[2021-12-24] MEDS: THIAMINE HCL 100 MG TABLET (FP) PO SCH (21:06)
[2021-12-25] MEDS: CLOTRIMAZOLE 10 MG TROCHE PO SCH ×5 (06:57→21:06)
[2021-12-25] MEDS: NICOTINE 10 MG CARTRIDGE (INHALER) IH PRN (07:01)
[2021-12-25] MEDS: TAMSULOSIN HCL 0.4 MG CAP PO SCH (09:32)
[2021-12-25] MEDS: HYDROCHLOROTHIAZIDE 12.5 MG CAPSULE (FP) PO SCH (09:32)
[2021-12-25] MEDS: HYDROCORTISONE 1% TOPICAL CREAM 30 GM TUBE TP SCH ×2 (09:33→21:07)
[2021-12-25] MEDS: NICOTINE 7 MG/24 HOURS TOPICAL PATCH TD SCH (09:34)
[2021-12-25] MEDS: BUPRENORPHINE/NALOXONE 8 MG/2 MG FILM PACKET SL SCH (09:34)
[2021-12-25] MEDS: FINASTERIDE 5 MG TABLET (FP) PO SCH (09:34)
[2021-12-25] MEDS: PRENATAL VITAMINS W/ FOLIC ACID TABLET (FP) PO SCH (09:34)
[2021-12-25] MEDS: ACYCLOVIR 400 MG TABLET PO SCH (09:35)
[2021-12-25] MEDS: IBUPROFEN 400 MG TABLET (FP) PO PRN (14:03)
[2021-12-25] MEDS: THIAMINE HCL 100 MG TABLET (FP) PO SCH (21:06)
[2021-12-25] MEDS: MELATONIN 5 MG TABLETS PO SCH (21:07)
[2021-12-26] MEDS: IBUPROFEN 400 MG TABLET (FP) PO PRN ×2 (04:57→21:09)
[2021-12-26] MEDS: CLOTRIMAZOLE 10 MG TROCHE PO SCH ×5 (06:45→21:07)
[2021-12-26] MEDS: NICOTINE 10 MG CARTRIDGE (INHALER) IH PRN ×2 (06:46→17:42)
[2021-12-26] MEDS: HYDROCHLOROTHIAZIDE 12.5 MG CAPSULE (FP) PO SCH (09:37)
[2021-12-26] MEDS: PRENATAL VITAMINS W/ FOLIC ACID TABLET (FP) PO SCH (09:37)
[2021-12-26] MEDS: BUPRENORPHINE/NALOXONE 8 MG/2 MG FILM PACKET SL SCH (09:37)
[2021-12-26] MEDS: NICOTINE 7 MG/24 HOURS TOPICAL PATCH TD SCH (09:37)
[2021-12-26] MEDS: HYDROCORTISONE 1% TOPICAL CREAM 30 GM TUBE TP SCH ×2 (09:38→21:07)
[2021-12-26] MEDS: ACYCLOVIR 400 MG TABLET PO SCH (09:39)
[2021-12-26] MEDS: FINASTERIDE 5 MG TABLET (FP) PO SCH (09:39)
[2021-12-26] MEDS: TAMSULOSIN HCL 0.4 MG CAP PO SCH (09:40)
[2021-12-26] MEDS: THIAMINE HCL 100 MG TABLET (FP) PO SCH (21:07)
[2021-12-26] MEDS: MELATONIN 5 MG TABLETS PO SCH (21:07)
[2021-12-27 00:06] LABS: SARS-CoV-2 NAA Not Detected (Not Detected)
[2021-12-27] MEDS: IBUPROFEN 400 MG TABLET (FP) PO PRN ×2 (03:49→18:03)
[2021-12-27] MEDS: CLOTRIMAZOLE 10 MG TROCHE PO SCH ×5 (06:07→22:09)
[2021-12-27] MEDS: NICOTINE 7 MG/24 HOURS TOPICAL PATCH TD SCH (09:54)
[2021-12-27] MEDS: HYDROCHLOROTHIAZIDE 12.5 MG CAPSULE (FP) PO SCH (09:54)
[2021-12-27] MEDS: PRENATAL VITAMINS W/ FOLIC ACID TABLET (FP) PO SCH (09:54)
[2021-12-27] MEDS: BUPRENORPHINE/NALOXONE 8 MG/2 MG FILM PACKET SL SCH (09:54)
[2021-12-27] MEDS: TAMSULOSIN HCL 0.4 MG CAP PO SCH (09:54)
[2021-12-27] MEDS: HYDROCORTISONE 1% TOPICAL CREAM 30 GM TUBE TP SCH ×2 (09:55→22:06)
[2021-12-27] MEDS: NICOTINE 10 MG CARTRIDGE (INHALER) IH PRN ×2 (09:55→22:07)
[2021-12-27] MEDS: FINASTERIDE 5 MG TABLET (FP) PO SCH (09:56)
[2021-12-27] MEDS: ACYCLOVIR 400 MG TABLET PO SCH (09:56)
[2021-12-27 12:37] LABS: HEMATOCRIT 35.2 % (35.4-49); HEMOGLOBIN 11.5 GM/dL (11.7-16.9); MCH 28.9 pg (25.7-33.7); MCHC 32.5 g/dl (32.0-35.9); MEAN CELL VOLUME 88.9 fl (80-96); MEAN PLT VOLUME 11.3 fl (7.5-11.1); PLATELET COUNT 156 10^3/uL (134-434); RBC 3.96 M/mm3 (4.00-5.60); RDW 14.2 % (11.9-15.9); WHITE BLOOD COUNT 2.6 K/mm3 (4.0-10.0)
[2021-12-27 12:38] LABS: INR 1.02 (0.83-1.09); PROTHROMBIN TIME (PATIENT) 11.7 SEC (9.7-13.0)
[2021-12-27 12:59] LABS: CALCIUM 8.9 mg/dL (8.5-10.1)
[2021-12-27 13:00] LABS: ALBUMIN 2.7 g/dl (3.4-5.0); BLOOD UREA NITROGEN 20.6 mg/dL (7-18)
[2021-12-27 13:03] LABS: CREATININE 0.9 mg/dL (0.55-1.3)
[2021-12-27 13:04] LABS: BILIRUBIN,TOTAL 0.3 mg/dL (0.2-1)
[2021-12-27 13:05] LABS: TOT PROT 8.2 g/dl (6.4-8.2)
[2021-12-27] MEDS: hydrOXYzine PAMOATE 25 MG CAPSULE (FP) PO PRN (22:07)
[2021-12-27] MEDS: MELATONIN 5 MG TABLETS PO SCH (22:07)
[2021-12-27] MEDS: THIAMINE HCL 100 MG TABLET (FP) PO SCH (22:07)
[2021-12-27] MEDS: ALBUTEROL SO4 HFA INHALER IH PRN (22:08)
[2021-12-28] MEDS: CLOTRIMAZOLE 10 MG TROCHE PO SCH ×5 (06:20→21:07)
[2021-12-28] MEDS: HYDROCHLOROTHIAZIDE 12.5 MG CAPSULE (FP) PO SCH (09:42)
[2021-12-28] MEDS: NICOTINE 7 MG/24 HOURS TOPICAL PATCH TD SCH (09:42)
[2021-12-28] MEDS: PRENATAL VITAMINS W/ FOLIC ACID TABLET (FP) PO SCH (09:42)
[2021-12-28] MEDS: ACYCLOVIR 400 MG TABLET PO SCH (09:42)
[2021-12-28] MEDS: TAMSULOSIN HCL 0.4 MG CAP PO SCH (09:42)
[2021-12-28] MEDS: FINASTERIDE 5 MG TABLET (FP) PO SCH (09:43)
[2021-12-28] MEDS: HYDROCORTISONE 1% TOPICAL CREAM 30 GM TUBE TP SCH ×2 (09:43→21:06)
[2021-12-28] MEDS: BUPRENORPHINE/NALOXONE 8 MG/2 MG FILM PACKET SL SCH (09:43)
[2021-12-28] MEDS: NICOTINE 10 MG CARTRIDGE (INHALER) IH PRN (09:43)
[2021-12-28] MEDS: ALBUTEROL SO4 HFA INHALER IH PRN (16:24)
[2021-12-28] MEDS: THIAMINE HCL 100 MG TABLET (FP) PO SCH (21:06)
[2021-12-28] MEDS: MELATONIN 5 MG TABLETS PO SCH (21:06)
[2021-12-28] MEDS: hydrOXYzine PAMOATE 25 MG CAPSULE (FP) PO PRN (21:07)
[2021-12-28] MEDS: IBUPROFEN 400 MG TABLET (FP) PO PRN (21:08)
[2021-12-29] MEDS: NICOTINE 10 MG CARTRIDGE (INHALER) IH PRN ×2 (06:18→14:25)
[2021-12-29] MEDS: CLOTRIMAZOLE 10 MG TROCHE PO SCH ×3 (06:18→14:24)
[2021-12-29] MEDS: HYDROCORTISONE 1% TOPICAL CREAM 30 GM TUBE TP SCH (09:12)
[2021-12-29] MEDS: IBUPROFEN 400 MG TABLET (FP) PO PRN (09:12)
[2021-12-29] MEDS: HYDROCHLOROTHIAZIDE 12.5 MG CAPSULE (FP) PO SCH (09:12)
[2021-12-29] MEDS: TAMSULOSIN HCL 0.4 MG CAP PO SCH (09:12)
[2021-12-29] MEDS: BUPRENORPHINE/NALOXONE 8 MG/2 MG FILM PACKET SL SCH (09:13)
[2021-12-29] MEDS: NICOTINE 7 MG/24 HOURS TOPICAL PATCH TD SCH (09:13)
[2021-12-29] MEDS: PRENATAL VITAMINS W/ FOLIC ACID TABLET (FP) PO SCH (09:13)
[2021-12-29] MEDS: ACYCLOVIR 400 MG TABLET PO SCH (09:14)
[2021-12-29] MEDS: FINASTERIDE 5 MG TABLET (FP) PO SCH (09:14)
[2021-12-29] MEDS: MELATONIN 5 MG TABLETS PO SCH (21:04)
[2021-12-29] MEDS: THIAMINE HCL 100 MG TABLET (FP) PO SCH (21:04)
[2021-12-29] MEDS: hydrOXYzine PAMOATE 25 MG CAPSULE (FP) PO PRN (21:04)
[2021-12-30] MEDS: hydrOXYzine PAMOATE 25 MG CAPSULE (FP) PO PRN (02:34)
[2021-12-30] MEDS: IBUPROFEN 400 MG TABLET (FP) PO PRN (02:34)
[2021-12-30] MEDS: NICOTINE 10 MG CARTRIDGE (INHALER) IH PRN (06:21)
[2021-12-30 06:46] VITALS: TEMP 97.3
[2021-12-30] MEDS: PRENATAL VITAMINS W/ FOLIC ACID TABLET (FP) PO SCH (09:43)
[2021-12-30] MEDS: HYDROCHLOROTHIAZIDE 12.5 MG CAPSULE (FP) PO SCH (09:43)
[2021-12-30] MEDS: NICOTINE 7 MG/24 HOURS TOPICAL PATCH TD SCH (09:43)
[2021-12-30] MEDS: FINASTERIDE 5 MG TABLET (FP) PO SCH (09:44)
[2021-12-30] MEDS: TAMSULOSIN HCL 0.4 MG CAP PO SCH (09:45)
[2021-12-30] MEDS ORDERED: BUPRENORPHINE/NALOXONE 8 MG/2 MG FILM PACKET SL SCH (10:00)
[2021-12-30] MEDS ORDERED: ACYCLOVIR 400 MG TABLET PO SCH (10:00)
[2021-12-30 11:23] VITALS: BP 125/67; PULSE 80
== END 2021-12-30 11:02 | disposition home or self-care (01) | DRG 772 ==
LOC: YASAS 15:14 → Y5N 15:15
PROVIDERS: ADMIT Allergy & Immunology; ATTEND Allergy & Immunology
PROC: HZ42ZZZ Group Counseling for Substance Abuse Treatment, Cognitive-Behavioral (ICD-10-PCS; principal; 2021-12-22)
DX: F11.20 Opioid dependence, uncomplicated (principal); F10.20 Alcohol dependence, uncomplicated; F15.20 Other stimulant dependence, uncomplicated; F17.210 Nicotine dependence, cigarettes, uncomplicated; F19.282 Other psychoactive substance dependence with psychoactive substance-induced sleep disorder; F19.24 Other psychoactive substance dependence with psychoactive substance-induced mood disorder; F32.9 Major depressive disorder, single episode, unspecified; Z21 Asymptomatic human immunodeficiency virus [HIV] infection status; I10 Essential (primary) hypertension; J45.909 Unspecified asthma, uncomplicated; H10.9 Unspecified conjunctivitis; K05.10 Chronic gingivitis, plaque induced; N40.0 Benign prostatic hyperplasia without lower urinary tract symptoms; R76.11 Nonspecific reaction to tuberculin skin test without active tuberculosis; Z86.19 Personal history of other infectious and parasitic diseases
CPT/HCPCS: 36415; 80053; 85027; 85610; C9803-CS; U0003; U0005